=== PATIENT | male | born 1955 | race Caucasian/White ===

== ENCOUNTER 2023-12-29 07:16 | Emergency (ER) | payer MEDICARE, MEDICAID, SELFPAY ==
[2023-12-29 07:30] VITALS: BP 155/96; PULSE 84; RESP 19; TEMP 36.6; O2SAT 95; BMI 25.9
--- NOTE | 2023-12-29 08:28 | PD.EDSKIN ---
ED Skin Abcess FB-RME/HPI General Chief complaint: Skin/Abscess/Foreign Body Stated complaint: boil on back . mid-lower back Time Seen by Provider: 12/29/23 07:27 Arrival date/time: 12/29/23 07:16 RME / HPI RME / HPI narrative: 68-year-old male with a swollen painful lesion to the upper part of his gluteal fold. He has never had an issue, swelling, cyst in this area before. He denies trauma. Related Data Previous Rx's ?Medication ?Instructions ?Recorded cefuroxime axetil 500 mg tablet 500 mg PO BID #14 tabs 09/14/23 pantoprazole 40 mg tablet,delayed 40 mg PO QDAY #14 tabs 09/14/23 release (Protonix) sulfamethoxazole 800 1 tab PO BID 10 days #20 tabs 12/29/23 mg-trimethoprim 160 mg tablet (Bactrim DS) Allergies Allergy/AdvReac Type Severity Reaction Status Date / Time codeine Allergy Severe Vomiting Verified 07/25/22 02:08 diphenhydramine Allergy Severe Nausea Verified 07/25/22 02:08 ED Exam Narrative Physical exam: GENERAL APPEARANCE: AxOx4, generally well-appearing, no acute distress, unkept, smells of heavy HEART: Normal rate and regular rhythm, normal S1/S1, no m/r/g LUNGS: CTAB, moving air well. No crackles or wheezes are heard. NEUROLOGICAL: Grossly nonfocal. Alert and oriented, moving all 4 extremities. CN not formally tested but appear grossly intact. Observed to ambulate with normal gait. Skin: Warm and dry without any rash, a verrucous lesion with surrounding erythema, and punctate pockets of purulence over the apex of his gluteal fold. Course Quality Measures none Orders Category Date Time Status Obtain Written Consent For: .NOW Care 12/29/23 07:46 Active Clindamycin Vial [Cleocin vial] Med 12/29/23 07:46 Discontinued 600 mg IM X1 ONE Lidocaine 1% 20 ml [Xylocaine 1% 20 ML] Med 12/29/23 07:46 Discontinued 10 ml INFL X1 ONE Vital Signs Vital signs: Vital Signs Temperature 97.8 F 12/29/23 07:30 Pulse Rate 84 12/29/23 07:30 Respiratory Rate 19 12/29/23 07:30 Blood Pressure 155/96 H 12/29/23 07:30 Pulse Oximetry (%) 95 12/29/23 07:30 Oxygen Delivery Method Room Air 12/29/23 07:30 Skin / Abscess / Foreign Body MDM Narrative MDM Narrative:: Mr. Wilkins presents with a mass over the apex of his gluteal fold at the area of a pilonidal cyst. There is a possibility of this being malignant, however currently it is infected with pockets of purulence. An I&D was done which removed a 1 cc pocket of purulence and he will be placed on Bactrim for MRSA coverage. I have discussed the importance and the need to follow-up with a general surgeon for further management of the cyst and even possibly a biopsy. I have advised him that he can also take the paperwork discharge papers with him to his primary care doctor which should believe is the [facility] (he states it is the clinic just down the street next to the light ). Patient data External records reviewed:: [facility] previous records Clinical information provided by:: patient Social determinants that could affect healthcare access:: none Patient has the following chronic illnesses:: None How is presenting disease/condition affected by chronic disease/condition?: no chronic disease Evaluation data The following diagnostics were reviewed and interpreted by me:: other (specify) Lab and/or radiology exams considered but not ordered:: Not indicated Interpretation Summary: Not applicable Medications / Prescriptions Medications or Prescriptions considered but not ordered:: None Medication administrations:: Medication Administration History Discontinued Medications Clindamycin Phosphate (Clindamycin Phos Inj 150 Mg/Ml Vial 6 Ml) 600 mg IM X1 ONE Stop: 12/29/23 07:47 Lidocaine HCl (Lidocaine Hcl 1% 20 Ml Vial) 10 ml INFL X1 ONE Stop: 12/29/23 07:47 Above Consultations Consultation(s) initiated? (list below): No Diagnosis Skin/Abscess Differential Diagnosis: abscess of skin or subcutaneous tissue, urticaria, herpes zoster and cellulitis Most likely diagnosis given after review of the tests above:: See below Admission Indicated Admission indicated?: not indicated Admission Request Was there a request for admission?: No Disposition Plan Disposition Plan: Discharge Discharge Attestation Discharge Attestation: The patient and all family members were given an opportunity to ask questions and understood the discharge instructions. Discharge instructions specifically effects, indications for sooner follow up or return to the emergency department, and the expected course of current diagnosis. Patient condition: Stable Discharge Plan Plan Patient Disposition: HOME (Self Care) Prescriptions/Referrals Prescriptions/Med Rec: New sulfamethoxazole-trimethoprim [Bactrim DS] 800-160 mg tablet 1 tab PO BID 10 Days Qty: 20 0RF No Action cefuroxime axetil 500 mg tablet 500 mg PO BID Qty: 14 0RF pantoprazole [Protonix] 40 mg tablet,delayed release (DR/EC) 40 mg PO QDAY Qty: 14 0RF Referrals: No Primary/Family,Physician [Primary Care Provider] - In 1 week Problem List Clinical Impression: Infected pilonidal cyst Patient/Caregiver Discharge Instructions Education Materials: Pilonidal Cyst Additional Instructions: Please follow-up with your primary care doctor for referral to a general surgeon for further management and possible further testing such as a biopsy. You can return to the emergency department sooner symptoms worsen or if he notes any new, concerning issues. Print Language: Macedonian Stand Alone Forms: [employer] Award Info., Patient Portal Info Letter
[2023-12-29] MEDS: LIDOCAINE HCL 1% 20 ML VIAL 10 ML INFL (08:53)
[2023-12-29] MEDS: CLINDAMYCIN PHOS INJ 150 MG/ML VIAL 6 ML 600 MG IM (08:54)
== END 2023-12-29 09:05 | disposition home or self-care (01) ==
PROVIDERS: Emergency Provider Emergency Medicine
DX: L05.91 Pilonidal cyst without abscess (principal)
CPT/HCPCS: 10080; 96372; 99283; J0736; J3490

== ENCOUNTER 2024-01-10 20:19 | Inpatient (IN) | payer MEDICARE, MEDICAID, SELFPAY ==
[2024-01-10 20:20] VITALS: PULSE 80; RESP 18; O2SAT 98
[2024-01-10 20:36] VITALS: BP 152/88; PULSE 88; RESP 18; TEMP 36.6; O2SAT 98
[2024-01-10 20:37] VITALS: BMI 24.3
--- NOTE | 2024-01-10 20:38 | PD.EDRME ---
Rapid Medical Screening Exam RME Arrival date/time: 01/10/24 20:19 68 year old male with c/o of multi complaints. abd pain, n/v bodyaches I have greeted and performed a focused initial assessment of this patient. A comprehensive ED assessment and evaluation of the patient, analysis of all test results, and completion of the medical decision making process will be conducted by additional ED providers. Chief Complaint: Abdominal Pain Vital signs: Vital Signs Temperature 98 F 01/10/24 20:36 Pulse Rate 88 01/10/24 20:36 Respiratory Rate 18 01/10/24 20:36 Blood Pressure 152/88 H 01/10/24 20:36 Pulse Oximetry (%) 98 01/10/24 20:36 Oxygen Delivery Method Room Air 01/10/24 20:36
[2024-01-10] MEDS: ACETAMINOPHEN 500 MG TABLET 1000 MG PO (21:02)
[2024-01-10] MEDS: ONDANSETRON ODT 4 MG TABRAP PO (21:02)
[2024-01-10 21:05] LABS: Basophils % (Auto) 0 % (0-2.5); Eosinophils # (Auto) 0.1 Thou/mm3 (0.0-0.5); Eosinophils % (Auto) 1 % (0-10); Hematocrit 38.5 % (41.0-53.0); Immature Granulocytes % (Auto) 0 % (0-0); Immature Granulocytes Auto 0.03 Thou/mm3 (0.00-0.00); Lymphocytes # (Auto) 0.7 Thou/mm3 (1.0-4.8); Lymphocytes % (Auto) 5 % (10-50); Mean Corpuscular HGB Conc 33.8 g/dl (31.0-37.0); Mean Corpuscular Hemoglobin 29.8 pg (25.0-35.0); Mean Corpuscular Volume 88 fL (80-100); Monocytes # (Auto) 0.9 Thou/mm3 (0.0-0.8); Monocytes % (Auto) 7 % (0-12); Neutrophils # (Auto) 11.6 Thou/mm3 (1.8-7.7); Neutrophils % (Auto) 87 % (37-80); Nucleated Red Blood Cell % 0 /100 WBC (0); Platelet Count 306 Thou/mm3 (140-440); RDW Standard Deviation 45.2 fL (35.1-43.9); Red Blood Count 4.36 Miln/mm3 (4.50-5.90); White Blood Count 13.3 Thou/mm3 (3.8-10.6)
[2024-01-10 21:22] LABS: Alanine Aminotransferase 18 U/L (10-49); Albumin, Serum 4.6 gm/dL (3.4-4.8); Albumin/Globulin Ratio 1.9 (1.2-2.2); Alkaline Phosphatase 95 U/L (46-116); Anion Gap 6 (7-16); Aspartate Amino Transferase 28 U/L (0-34); BUN/Creatinine Ratio 26 Ratio (12-20); Bilirubin,Total 0.5 mg/dL (0.3-1.2); Blood Urea Nitrogen 21 mg/dL (9-23); Calcium 9.4 mg/dL (8.3-10.6); Calcium (Corrected) 9.4 mg/dL (8.5-10.1); Carbon Dioxide 24.2 mMol/L (20.0-31.0); Chloride 107 mMol/L (98-107); Creatinine (Component) 0.8 mg/dL (0.6-1.3); Estimated Creatinine Clearance 87.1 mL/min (>60); Globulin 2.4 gm/dL (2.3-3.5); Glucose 107 mg/dL (74-106); Lipase 32 U/L (12-53); Osmolality,Calculated 276 (275-295); Potassium 3.7 mMol/L (3.4-5.1); Sodium 137 mMol/L (136-145); eGFR > 60 See Note
[2024-01-10 22:58] LABS: Collection Type, Urine Voided
[2024-01-10 23:16] LABS: Bilirubin,Urine Negative (Negative); Blood,Urine Negative (Negative); Clarity,Urine Clear (Clear/Hazy); Color,Urine Lt-Yellow (Lt Yel-Yel); Glucose, Urine Negative (Negative); Ketones,Urine Negative (Negative); Leukocyte Esterase,Urine Negative (Negative); Nitrite,Urine Negative (Negative); PH,Urine 5.5 (5.0-7.0); Protein,Urine Negative (Neg - Trace); RBC,Urine 2 /hpf (0-3); Specific Gravity,Urine 1.031 (1.001-1.035); Squamous Epithelial Cell,Urine < 1 /hpf (0-5); Urobilinogen,Urine Negative mg/dL (0.0-1.0); WBC,Urine 1 /hpf (0-5)
--- NOTE | 2024-01-10 23:38 | XR_ITS ---
Examination: CT abdomen and pelvis without contrast. Coronal 3-D reconstructions. Sagittal 2-D reconstructions. Date and time of exam:24 1208 hrs. Indications: Abdominal pain nausea vomiting beginning today CTDI: vol (mGy): 5.85 DLP: (mGycm): 300 Technique: Axial images of the abdomen have been obtained, 3 mm slice thickness Intravenous contrast material has not been administered. Low dose protocols were performed. One or more of the following dose reduction techniques were used; automated exposure control, adjustment of the mA and/or KV according to patient size, use of iterative reconstruction technique. Findings: Smaller areas of opacity in both lower lung zones No focal liver or splenic lesion No gallstones No pancreatic mass No renal or ureteral calculi, no hydronephrosis Abnormal small bowel, fluid distended with wall thickening Normal appendix No diverticulitis Urinary bladder intact Transverse prostate dimension 4.9 cm Impression: Small areas of opacity in both lower lung zones, recommend PA lateral chest follow-up Abnormal small bowel, fluid distended with wall thickening, differential would include enteritis such as Crohn's disease, less likely early small bowel obstruction
[2024-01-11] VITALS (7 sets, daily range): BP systolic 113–153; BP diastolic 65–95; PULSE 49–73; RESP 15–18; TEMP 36.3–37.2; O2SAT 94–97; BMI 23.7
--- NOTE | 2024-01-11 01:52 | PRELIM_ITS ---
CT scan of the abdomen and pelvis without intravenous contrast (axial sections with sagittal and teresa nal reformats) January 11, 2024 at 0008 hoursClinical History: Abdominal pain, nausea, rule out smal l bowel obstruction vs colitis.Comparison: No prior study is available for comparison. Findings:There are small areas of consolidation at thelung bases. Bibasilar streaky atelectasis is present.The live r, gallbladder, pancreas, spleen, kidneys and adrenals are unremarkable on this noncontrast study.The stomach is distended with food residue. There is mild small bowel wall thickening. There are multipl e mildly dilated small bowel loops without evident transition point. There is mild mesenteric fat str anding.There are occasional colonic diverticula without evidence of diverticulitis. The appendix is w ithin normal limits. There is no mesenteric or retroperitoneal adenopathy.The urinary bladder is inco mpletely distended at the time of the examination and appears mildly thick walled. The prostate is en larged with its median lobe projecting within the bladder lumen.There is no free fluid or free air. T he abdominal aorta demonstrates atheromatous calcification without evidence of aneurysm.There is anor ectal and bilateral gluteal edema/ fat stranding.Degenerative changes are identified in the spine.Imp ression:1. Findings suspicious forpartial small bowel obstruction versus enteritis.Recommend clinical correlation.2. Anorectal and bilateral gluteal edema/ cellulitis. Recommend clinical correlation.3. Small areas of consolidation at thelung bases, infectious process cannot be excluded. Recommend clini ke correlation.Discussion Details: Results verbally communicated to Favian Grimaldo RN at 04:38 AM E T 01/11/2024. A call back number was provided to facilitate a direct physician to physician communica tion. Report Electronically Signed By: Vannesa Eisenberg 01/11/2024 1:52:04 AM [EST]
--- NOTE | 2024-01-11 02:07 | PD.EDABDPN ---
ED Abdominal Pain RME/HPI General Chief Complaint: Abdominal Pain Stated complaint: ABD PAIN Arrival date/time: 01/10/24 20:19 RME / HPI RME / HPI narrative: 01/10/24 20:19 68 year old male with c/o of multi complaints. abd pain, n/v bodyaches I have greeted and performed a focused initial assessment of this patient. A comprehensive ED assessment and evaluation of the patient, analysis of all test results, and completion of the medical decision making process will be conducted by additional ED providers. ----- Dr. Hoang?s Main ED Evaluation: 68yo male presents to the ED for complaints of abdominal and back pain x today. Patient reports associated nausea, vomiting, chills, sweating, a new productive cough, toe pain, and a headache. He states all of his symptoms started today and that everything hurts . He denies any other associated symptoms. Related Data Previous Rx's ?Medication ?Instructions ?Recorded pantoprazole 40 mg tablet,delayed 40 mg PO QDAY #14 tabs 09/14/23 release (Protonix) sulfamethoxazole 400 1 tab PO BID 6 days #12 tabs 01/12/24 mg-trimethoprim 80 mg tablet (Bactrim) Allergies Allergy/AdvReac Type Severity Reaction Status Date / Time codeine Allergy Severe Vomiting Verified 07/25/22 02:08 diphenhydramine Allergy Severe Nausea Verified 07/25/22 02:08 Review of Systems Review of Systems Systems Reviewed: All systems reviewed, normal except as documented Narrative Review of Systems: Gen: No fever, + chills, no weight loss, + sweating EYES: No discharge, no visual changes, no pain HEENT: No ear pain, no congestion, no sore throat PULM: No shortness of breath, + cough, no congestion CV: No chest pain, no dyspnea on exertion, no palpitations GI: + nausea, + vomiting, no diarrhea, + pain, no constipation : No frequency, no urgency, no dysuria Musc/skel: No joint pain, + back pain, + toe pain Skin: No rash Psyc: No hallucinations, no depression Heme/Lymph: No easy bleeding or bruising tendencies Neuro: No weakness, + headache Past Medical History Past Medical History CARDIAC: Negative Cardiac Disorders or Congestive Heart Failure RESPIRATORY: Negative Chronic Obstructive Pulmonary Disease (COPD) or Asthma GENITOURINARY: Negative Renal Disease ENDOCRINE: Positive Hyperthyroidism; Negative Diabetes Mellitus Type 1 or Diabetes Mellitus Type 2 HEMATOLOGIC: Negative Sickle Cell Disease Social History SMOKING STATUS: Current every day smoker ED Exam Narrative Physical exam: GENERAL APPEARANCE: alert and oriented x 4, well-developed, well-nourished, unkempt, poor hygiene, no acute distress HEENT: Normocephalic, atraumatic; pupils equal, round, reactive to light; EOMI; mucous membranes pink, moist; oropharynx clear NECK: Supple LUNGS: CTABL; no wheezes, no rales, no rhonchi HEART: Regular rate, regular rhythm; normal S1, S2; no murmurs ABDOMEN: non distended; normal BS; soft, no tenderness, no guarding, no rebound; no masses, no organomegaly, no hernia BACK: no CVA tenderness EXTREMITIES: atraumatic; no edema; bilateral foot erythema, whitish discoloration of left great toe, consistent with possible frostbite injury NEUROLOGIC: awake; alert and oriented x4; cranial nerves II-XII grossly intact; no focal sensory or motor deficits PSYCHIATRIC: appropriate mood and affect SKIN: warm, dry, normal color; no rashes Course Quality Measures none Orders Category Date Time Status Insert IV NOW Care 01/11/24 02:[address] abdomen pelvis wo con Stat Exams 01/10/24 23:38 Completed XR small bowel single contrast Stat Exams 01/11/24 04:14 Completed CBC Stat Lab 01/10/24 20:48 Completed CMP [Comprehensive Metabolic Panel] Stat Lab 01/10/24 20:48 Completed Lipase Stat Lab 01/10/24 20:48 Completed UA [Urinalysis] Stat Lab 01/10/24 22:28 Completed Acetaminophen Tab [Tylenol ES Tab] Med 01/10/24 20:39 Discontinued 1,000 mg PO X1 ONE Ondansetron Odt [Zofran Odt] Med 01/10/24 20:39 Discontinued 4 mg PO X1 ONE Sodium Chloride 0.9% 1000 ml [Ns] 1,000 ml Med 01/11/24 04:12 Discontinued IV 999 mls/hr Vital Signs Vital signs: Vital Signs Temperature 98 F 01/10/24 20:36 Pulse Rate 88 01/10/24 20:36 Respiratory Rate 18 01/10/24 20:36 Blood Pressure 152/88 H 01/10/24 20:36 Pulse Oximetry (%) 98 01/10/24 20:36 Oxygen Delivery Method Room Air 01/10/24 20:36 Pulse ox is 98% on room air, which is normal according to my interpretation. Abdominal Pain MDM MDM Narrative MDM Narrative:: Scribe Attestation: 01/11/24 - Katelynn Atkins am scribing for and in the presence of Dr. Hoang. Patient data External records reviewed:: [facility] previous records (Per chart review, patient was seen here on 12/29/23 for an infected pilonidal cyst.) Clinical information provided by:: patient Social determinants that could affect healthcare access:: substance use (hx of methamphetamine abuse) Patient has the following chronic illnesses:: hyperthyroidism How is presenting disease/condition affected by chronic disease/condition?: uneffected by Evaluation data The following diagnostics were reviewed and interpreted by me:: lab results and radiology exam(s) Lab and/or radiology exams considered but not ordered:: none Interpretation Summary: WBC count is elevated at 13.3, CMP is normal, Lipase is normal, UA is negative, according to my interpretation. ---- Telerad Preliminary Report Draft Patient: CARRIE CAMILO. Record#: [id number] Birthdate: 1955 Age/Sex: 68 / M Location: [facility] Attending Dr: Ordering Physician: Date of Service: Procedure(s): Accession Number(s): cc: ~ CT scan of the abdomen and pelvis without intravenous contrast (axial sections with sagittal and coronal reformats) January 11, 2024 at 0008 hours Clinical History: Abdominal pain, nausea, rule out small bowel obstruction vs colitis. Comparison: No prior study is available for comparison. Findings: There are small areas of consolidation at thelung bases. Bibasilar streaky atelectasis is present. The liver, gallbladder, pancreas, spleen, kidneys and adrenals are unremarkable on this noncontrast study. The stomach is distended with food residue. There is mild small bowel wall thickening. There are multiple mildly dilated small bowel loops without evident transition point. There is mild mesenteric fat stranding.There are occasional colonic diverticula without evidence of diverticulitis. The appendix is within normal limits. There is no mesenteric or retroperitoneal adenopathy. The urinary bladder is incompletely distended at the time of the examination and appears mildly thick walled. The prostate is enlarged with its median lobe projecting within the bladder lumen.There is no free fluid or free air. The abdominal aorta demonstrates atheromatous calcification without evidence of aneurysm.There is anorectal and bilateral gluteal edema/ fat stranding. Degenerative changes are identified in the spine. Impression: 1. Findings suspicious forpartial small bowel obstruction versus enteritis.Recommend clinical correlation. 2. Anorectal and bilateral gluteal edema/ cellulitis. Recommend clinical correlation. 3. Small areas of consolidation at thelung bases, infectious process cannot be excluded. Recommend clinical correlation. Discussion Details: Results verbally communicated to Favian Grimaldo RN at 04:38 AM ET 01/11/2024. A call back number was provided to facilitate a direct physician to physician communication. Report Electronically Signed By: Vannesa Eisenberg 01/11/2024 1:52:04 AM [EST] Medications / Prescriptions Medications or Prescriptions considered but not ordered:: none Medication administrations:: Medication Administration History Discontinued Medications Acetaminophen (Acetaminophen 500 Mg Tablet) 1,000 mg PO X1 ONE Stop: 01/10/24 20:40 Last Admin: 01/10/24 21:02 Dose: 1,000 mg Documented By: MARY Acetaminophen (Acetaminophen 325 Mg Tablet) 650 mg PO Q6H PRN PRN Reason: Fever >101.5 Stop: 02/10/24 04:37 Acetaminophen (Acetaminophen 325 Mg Tablet) 650 mg PO Q6H PRN PRN Reason: PAIN SCALE 1-3 (mild Stop: 02/10/24 04:37 Last Admin: 01/12/24 21:56 Dose: 650 mg Documented By: Comments: per patient request Admin: 01/12/24 10:04 Dose: 650 mg Documented By: MEERA Hydrocodone Bitart/Acetaminophen (Hydrocodone/Apap 5/325 Tablet) 1 tab PO X1 ONE Stop: 01/12/24 23:26 Last Admin: 01/12/24 23:58 Dose: 1 tab Documented By: Doxycycline Hyclate (Doxycycline 100 Mg Tablet) 100 mg PO BID JERRY Stop: 01/18/24 10:44 Last Admin: 01/13/24 08:35 Dose: 100 mg Documented By: Admin: 01/12/24 21:56 Dose: 100 mg Documented By: Admin: 01/12/24 10:04 Dose: 100 mg Documented By: Admin: 01/11/24 21:57 Dose: 100 mg Documented By: Admin: 01/11/24 13:19 Dose: 100 mg Documented By: MEERA Famotidine (Famotidine Inj 10 Mg/Ml Vial 2 Ml) 20 mg IVP Q12HR JERRY Stop: 02/10/24 08:59 Last Admin: 01/13/24 08:35 Dose: 20 mg Documented By: Admin: 01/12/24 21:57 Dose: 20 mg Documented By: Admin: 01/12/24 10:03 Dose: 20 mg Documented By: Admin: 01/11/24 21:57 Dose: 20 mg Documented By: Admin: 01/11/24 10:32 Dose: 20 mg Documented By: MEERA Heparin Sodium (Porcine) (Heparin Sod Inj 5000 Unit/Ml Vial) 5,000 unit SC Q8HR JERRY Stop: 01/25/24 05:59 Last Admin: 01/13/24 05:13 Dose: 5,000 unit Documented By: Co-signed By: GENARO Admin: 01/12/24 22:00 Dose: 5,000 unit Documented By: Co-signed By: JASON Admin: 01/12/24 14:17 Dose: 5,000 unit Documented By: MEERA Co-signed By: ASHLEE Admin: 01/12/24 06:33 Dose: 5,000 unit Documented By: Co-signed By: GENARO Admin: 01/11/24 21:57 Dose: 5,000 unit Documented By: JANET Co-signed By: OSCAR Admin: 01/11/24 13:19 Dose: 5,000 unit Documented By: MEERA Co-signed By: TAHMINA Admin: 01/11/24 06:13 Dose: 5,000 unit Documented By: HORACIO Co-signed By: MARY Sodium Chloride (Ns) 1,000 mls @ 999 mls/hr IV .Q1H1M ONE Stop: 01/11/24 05:12 Last Infusion: 01/11/24 06:13 Dose: Infused Documented By: Admin: 01/11/24 04:47 Dose: 999 mls/hr Documented By: ALEJANDRO Ceftriaxone Sodium/Dextrose (Rocephin/D5w 1gm Iv Premix) 50 mls @ 100 mls/hr IV QDAY JERRY Stop: 01/18/24 10:36 Last Infusion: 01/13/24 09:05 Dose: Infused Documented By: Admin: 01/13/24 08:35 Dose: 100 mls/hr Documented By: Infusion: 01/12/24 10:33 Dose: Infused Documented By: Admin: 01/12/24 10:03 Dose: 100 mls/hr Documented By: Infusion: 01/11/24 13:49 Dose: Infused Documented By: Admin: 01/11/24 13:19 Dose: 100 mls/hr Documented By: MEERA Ondansetron HCl (Ondansetron Odt 4 Mg Tabrap) 4 mg PO X1 ONE; Protocol Stop: 01/10/24 20:40 Last Admin: 01/10/24 21:02 Dose: 4 mg Documented By: CVL Ondansetron HCl (Ondansetron Inj 2 Mg/Ml Inj 2 Ml) 4 mg IV Q6H PRN; Protocol PRN Reason: NAUSEA OR VOMITING Stop: 02/10/24 04:37 Potassium Phos/Sodium Phos (Naph,[facility] Mbdb 1 Packet (1.5 Gm)) 2 packet PO X1 ONE Stop: 01/12/24 08:05 Last Admin: 01/12/24 10:04 Dose: 2 packet Documented By: MEERA see above Consultations Consultation(s) initiated? (list below): Yes Consultation #1 (Physician, Specialty, Details): Discussed case with [Dr. Barron, attending Dr. Foss] from Hospitalist service regarding admission. Discussed patients ED course, exam findings, labs, and radiology results. The Hospitalist will come evaluate him for admission. Time: 04:13 Diagnosis Differential diagnosis abdominal pain: small bowel obstruction and other (enteritis, colitis) Most likely diagnosis given after review of the tests above:: see below Admission Indicated Admission indicated?: indicated Admission Request Was there a request for admission?: Yes Admission Attestation Admission request attestation: Discussed case with [] from Hospitalist service regarding admission. Discussed patients ED course, exam findings, labs, and radiology results. The Hospitalist [agrees,declines] to accept the patient for admission. Disposition Plan Disposition Plan: Admit Discharge Plan Plan Patient Disposition: Admit Acute Care w/in Hospital Patient condition on transfer: Stable Problem List Clinical Impression: Partial small bowel obstruction
--- NOTE | 2024-01-11 04:14 | XR_ITS ---
Examination: Small bowel series with KUBs Technique: AP portable supine abdomen 3 views in medial, 30 minutes, 1 hour, patient received 120 cc Gastrografin orally Exam date and time: January 11, 2024 0549 hrs. Indications: Abdominal pain and distention today, CT abdomen pelvis January 11, 2024 0008 hrs. Small bowel obstruction versus enteritis Findings: Contrast in distended small bowel loops on the 1 hour film Impression: Dilated small bowel loops, recommend follow-up KUBs 8:00 AM, 10:00 AM, 12 noon
--- NOTE | 2024-01-11 04:44 | PD.RESHP ---
Documentation for date of: 01/11/24 [facility] History of Present Illness History of present illness: This is a 67-year-old male with PMHx of substance abuse who presented to the ED with 3+ days of worsening abdominal pain, associated with nausea, and not recurrent episode of vomiting stomach content containing small amount of blood. Abdominal pain diffuse, poorly localized, rated 6 out of 10, not associated with eating, no alleviating or worsening factors. Last bowel movement 4 days ago and was soft and normal in color. He was passing flatus prior to admission yesterday, but not currently. He is an active METH user, last used METH the day of admission. Admits to subjective fever. Denies headaches, confusion, chest pain, shortness of breath, cough, blood in stool, dysuria, urinary frequency or urgency, or hematuria. ED COURSE: Afebrile, BP 152/88, HR 88, RR 18, satting 98% on room air Labs showed leukocytosis 13.3, Hgb of 13, normal chemistry panel, normal UA Preliminary CT abdomen showed partial SBO versus enteritis, anorectal/bilateral gluteal edema and cellulitis, small lung bibasilar consolidations. Patient started on small bowel series with GASTROGRAFIN, admitted to [facility] for further evaluation. PMHx: None PSHx: None Meds: None Allergies: CODEINE (vomiting), DIPHENHYDRAMINE (nausea) SH: Homeless, occasional alcohol use, occasional tobacco smoker, active METH user Exam Vital Signs Temp Pulse Resp BP Pulse Ox O2 Del Method 98.9 F 70 17 134/75 H 94 L Room Air 01/11/24 04:43 01/11/24 04:43 01/11/24 04:43 01/11/24 04:43 01/11/24 04:43 01/11/24 04:43 Narrative Exam GENERAL: Disheveled, mild distress/abdominal pain, otherwise normal adult male HEENT: NCAT.?GRACIELA. Oral mucosa is moist. Patent Nares NECK: Supple, nontender, no thyromegaly, no meningismus, no JVD, no step offs CHEST: Symmetrical, atraumatic, and with equal expansion, Nontender on palpation no deformity and no crepitus. CARDIOVASCULAR: RRR, no m/g/r LUNGS: CTAB, no w/r/r. Symmetrical chest rise. No intercostal subcostal retraction. ABDOMEN: Diffusely tender, rigid, distended, no guarding or rebound or mass noted, BS present in all quadrants. EXTREMITIES: Nontender.? No edema/cyanosis.?Moves all 4 extremities well, with full ROM and good CSM. SKIN: Warm and dry, no jaundice. Small stage I ulcer of left gluteal fold, erythema and swelling of bilateral gluteal fold, nontender. MSK: No lumbar or midline, no CVA, no paraspinal muscle spasm or tenderness. NEURO: NIEVES x4, CN II-XII grossly intact.?No focal neurologic deficits. PSYCHIATRIC: Normal mood and affect, cooperative, no SI or HI or hallucinations. Results: Labs 01/11/24 05:07 01/11/24 05:07 Labs: Short CBC 01/10/24 Range/Units 20:48 WBC 13.3 H (3.8-10.6) Thou/mm3 Hgb 13.0 L (13.5-16.0) g/dL Hct 38.5 L (41.0-53.0) % Plt Count 306 (140-440) Thou/mm3 BMP 01/10/24 20:48 Sodium 137 Potassium 3.7 Chloride 107 Carbon Dioxide 24.2 BUN 21 Creatinine 0.8 Glucose 107 H Calcium 9.4 Liver Function 01/10/24 Range/Units 20:48 Total Bilirubin 0.5 (0.3-1.2) mg/dL AST 28 (0-34) U/L ALT 18 (10-49) U/L Alkaline Phosphatase 95 (46-116) U/L Albumin 4.6 (3.4-4.8) gm/dL Urine 01/10/24 Range/Units 22:28 Urine Color Lt-Yellow (Lt Yel-Yel) Urine Clarity Clear (Clear/Hazy) Urine pH 5.5 (5.0-7.0) Ur Specific [place] 1.031 (1.001-1.035) Urine Protein Negative (Neg - Trace) Urine Glucose (UA) Negative (Negative) Quality Measures Quality Measures none Advance care planning discussed with:: patient Medications Home Medications and Allergies Allergies Allergy/AdvReac Type Severity Reaction Status Date / Time codeine Allergy Severe Vomiting Verified 07/25/22 02:08 diphenhydramine Allergy Severe Nausea Verified 07/25/22 02:08 Visit Medications Sodium Chloride (Ns) 1,000 mls @ 999 mls/hr IV .Q1H1M ONE Stop: 01/11/24 05:12 Discontinued Medications Acetaminophen (Acetaminophen 500 Mg Tablet) 1,000 mg PO X1 ONE Stop: 01/10/24 20:40 Last Admin: 01/10/24 21:02 Dose: 1,000 mg Ondansetron HCl (Ondansetron Odt 4 Mg Tabrap) 4 mg PO X1 ONE; Protocol Stop: 01/10/24 20:40 Last Admin: 01/10/24 21:02 Dose: 4 mg Assessment & Plan Plan In summary: 68-year-old male with polysubstance abuse disorder, admitted for possible SBO, started on small bowel series with GASTROGRAFIN. # Partial SBO Presented with abdominal pain and distention, unable to pass stools for 4 days, associated with nausea single episode of vomiting Exam significant for generally tender and distended abdomen Prelim CT showed partial SBO ? NPO ? Small bowel series ? ACETAMINOPHEN for pain ? Consider NG tube if symptoms worsen or do not resolve. ? Consider general surgery consult # Hypertension Likely 2/2 pain, no history of hypertension, not currently taking meds Admission BP 155/96, currently normotensive ? Daily vitals ? Consider AMLODIPINE as indicated # Leukocytosis Likely reactive 2/2 SBO and/or ?cellulitis as below ? Daily CBS ? Anticipate improvement with SBO resolution # Cellulitis of gluteal fold # Stage I ulcer of left gluteal fold Exam showed mild erythema and swelling of bilateral gluteal folds, stage 1 ulcer of left gluteal fold, no tenderness CT suggested celluluitis of anorectal/bilateral gluteal edema and cellulitis Possibly contributing to leukocytosis ? Wound care ? Consider CEPHALEXIN # Polysubstance abuse disorder History of alcohol, tobacco, and active meth use ? Consulted on cessasion and social support # Incidental Bibasliar PNA As seen on prelim CT, patient otherwise asymptomatic, denies cough or sob, normal lung exam ? Continue monitoring Health maintenance Diet: NPO GI prophylaxis: FAMOTIDINE DVT prophylaxis: HEPARIN Antibiotics: None CODE STATUS: Full Code Disposition: Awaiting SBO resolution Patient case was discussed with attending, Dr. Roderick ROSA and senior resident Dr. Barron. Audra Laws DO PGYI Attending Provider Attestation/Addendum 68-year-old male patient with substance abuse, homelessness was seen in the ER complaining of multiple symptoms including abdominal pain body aches, cough, nausea vomiting. Workup showed elevated WBC count of 13,000. Patient was presented to the hospitalist service for admission for partial small bowel obstruction. No past surgical history elicited. CT scan showed possible partial small bowel obstruction, and a rectal, gluteal fold edema, focal consolidation at the lung bases. Small bowel series was ordered. The patient is a poor historian. When I saw him he denies chest pain no abdominal pain. He is comfortably sleeping.
[2024-01-11] MEDS: SODIUM CHLORIDE 0.9% 1000 ML 1,000 ML 999 ML IV (04:47)
[2024-01-11 05:32] LABS: Basophils % (Auto) 0 % (0-2.5); Eosinophils # (Auto) 0.1 Thou/mm3 (0.0-0.5); Eosinophils % (Auto) 1 % (0-10); Hematocrit 37.6 % (41.0-53.0); Hemoglobin 12.6 g/dL (13.5-16.0); Immature Granulocytes % (Auto) 0 % (0-0); Immature Granulocytes Auto 0.02 Thou/mm3 (0.00-0.00); Lymphocytes # (Auto) 0.4 Thou/mm3 (1.0-4.8); Lymphocytes % (Auto) 5 % (10-50); Mean Corpuscular HGB Conc 33.5 g/dl (31.0-37.0); Mean Corpuscular Hemoglobin 29.8 pg (25.0-35.0); Mean Corpuscular Volume 89 fL (80-100); Monocytes # (Auto) 0.7 Thou/mm3 (0.0-0.8); Monocytes % (Auto) 8 % (0-12); Neutrophils # (Auto) 7.9 Thou/mm3 (1.8-7.7); Neutrophils % (Auto) 86 % (37-80); Nucleated Red Blood Cell % 0 /100 WBC (0); Platelet Count 279 Thou/mm3 (140-440); RDW Standard Deviation 45.9 fL (35.1-43.9); Red Blood Count 4.23 Miln/mm3 (4.50-5.90); White Blood Count 9.3 Thou/mm3 (3.8-10.6)
[2024-01-11 05:56] LABS: Alanine Aminotransferase 15 U/L (10-49); Albumin, Serum 4.1 gm/dL (3.4-4.8); Albumin/Globulin Ratio 1.9 (1.2-2.2); Alkaline Phosphatase 88 U/L (46-116); Anion Gap 6 (7-16); Aspartate Amino Transferase 22 U/L (0-34); BUN/Creatinine Ratio 21 Ratio (12-20); Bilirubin,Total 0.7 mg/dL (0.3-1.2); Blood Urea Nitrogen 17 mg/dL (9-23); Calcium 8.4 mg/dL (8.3-10.6); Calcium (Corrected) 8.4 mg/dL (8.5-10.1); Carbon Dioxide 25.1 mMol/L (20.0-31.0); Chloride 106 mMol/L (98-107); Creatinine (Component) 0.8 mg/dL (0.6-1.3); Estimated Creatinine Clearance 87.1 mL/min (>60); Globulin 2.2 gm/dL (2.3-3.5); Glucose 94 mg/dL (74-106); Magnesium 1.8 mg/dL (1.6-2.6); Osmolality,Calculated 275 (275-295); Potassium 3.6 mMol/L (3.4-5.1); Sodium 137 mMol/L (136-145); Total Protein 6.3 gm/dL (5.7-8.2); eGFR > 60 See Note
[2024-01-11] MEDS: HEPARIN SOD INJ 5000 UNIT/ML VIAL SC ×3 (06:13→21:57)
--- NOTE | 2024-01-11 07:15 | PC.NURSE ---
Report received at this tme; per report, pt has been having ABD pain x3 days, with N/V. Pt diagnosed with small bowel obstruction. His urine showed hematuria. Pt states his last BM was 4 days ago and reports he's constipated. Pt is a MedSurg admit. PMH of substance abuse with meth. Pt reports last use was 01/10/2024. Pt denies any PMH when asked at this time.
--- NOTE | 2024-01-11 08:00 | XR_ITS ---
Examination: Abdomen AP single view Technique: AP portable supine abdomen, single view Exam date and time: January 11, 2024 0749 hrs. Indications: Abdominal pain this week, 2 hour delayed film post small bowel series today Findings: Contrast in mildly distended small bowel loops Impression: Unlikely small bowel obstruction, additional delayed films will be obtained
--- NOTE | 2024-01-11 10:00 | XR_ITS ---
Examination: Abdomen AP single view Technique: AP portable supine abdomen, single view Exam date and time: January 11, 2024 1014 hrs. Indications: Abdominal pain and distention this week, forearm delayed film post small bowel series today. Findings: Contrast in mildly distended small bowel loops with contrast now present throughout the colon including rectal region Impression: Negative for small bowel obstruction
[2024-01-11] MEDS: FAMOTIDINE INJ 10 MG/ML VIAL 2 ML 20 MG IVP ×2 (10:32→21:57)
--- NOTE | 2024-01-11 11:45 | PC.NURSE ---
stage 3 pressure injury noted to left gluteal cleft, area cleaned and allevyn in place
--- NOTE | 2024-01-11 11:47 | PC.NURSE ---
pt states prior to hospital visit he was living with a friend which he worked for, but was unexpectedly kicked out, pt states he has no transportation and is currently homeless, referral to certified social workers in health care made
--- NOTE | 2024-01-11 12:30 | PC.NURSE ---
Made Dr. Barboza aware pt doesnt have blood culture orders, states no orders at this time
--- NOTE | 2024-01-11 12:32 | PD.RESPRO ---
Documentation for date of: 01/11/24 Subjective Subjective Interval history: Patient seen at bedside this morning. No overnight events. Patient stated that he has been passing flatulence, but does not remember when his last bowel movement was. He was also complaining of some mild headaches and stated that he had last used meth on the day of his admission. Small bowel series was negative for small bowel obstruction. Order urine tox screen. No other complaints at this time. Exam Vital Signs Temp Pulse Resp BP Pulse Ox O2 Del Method 97.4 F 49 L 17 132/76 H 97 Room Air 01/11/24 12:00 01/11/24 12:00 01/11/24 12:00 01/11/24 12:00 01/11/24 12:00 01/11/24 12:00 Narrative Exam General: A/O x2 (not to time), disheveled, drowsy Eyes: PERRL, EOMI. Anicteric, vision grossly intact. Ears: No ear pain, no ear discharge, Hearing grossly intact. Nose: No nasal discharge. Mouth/Throat: dry mucous membranes, no redness, no lesions. Neck: Neck supple, non-tender, no cervical lymphadenopathy. Lungs: Clear RALPH to auscultation and percussion, No accessory muscle use. Cardio: Normal S1/S2, regular rhythm, no murmurs, no JVD Abdomen: Soft, non-tender, no palpable masses, peristalsis present, no guarding or rebound. Extremities: Symmetrical, no significant deformities, no peripheral edema , non-tender, peripheral pulses presents. Skin: No rashes, no lesions, warm to touch. Neuro: No focal neurological deficits. motor and sensory intact. Objective Labs 01/11/24 05:07 01/11/24 05:07 Labs: Laboratory Results - last 24 hr 01/10/24 01/10/24 01/11/24 20:48 22:28 05:07 WBC 13.3 H 9.3 RBC 4.36 L 4.23 L Hgb 13.0 L 12.6 L Hct 38.5 L 37.6 L MCV 88 89 MCH 29.8 29.8 MCHC 33.8 33.5 RDW Std Deviation 45.2 H 45.9 H Plt Count 306 279 Neut % (Auto) 87 H 86 H Lymph % (Auto) 5 L 5 L Powell % (Auto) 7 8 Eos % (Auto) 1 1 Baso % (Auto) 0 0 Neut # (Auto) 11.6 H 7.9 H Lymph # (Auto) 0.7 L 0.4 L Powell # (Auto) 0.9 H 0.7 Eos # (Auto) 0.1 0.1 Baso # (Auto) 0.0 0.0 Immature Gran # (Auto) 0.03 H 0.02 H Absolute Nucleated RBC 0.00 0.00 Immature Gran % 0 0 Nucleated RBC % 0 0 Sodium 137 137 Potassium 3.7 3.6 Chloride 107 106 Carbon Dioxide 24.2 25.1 Anion Gap 6 L 6 L BUN 21 17 Creatinine 0.8 0.8 Estim Creat Clear Calc 87.1 87.1 eGFR > 60 > 60 BUN/Creatinine Ratio 26 H 21 H Glucose 107 H 94 Calculated Osmolality 276 275 Calcium 9.4 8.4 Corrected Calcium 9.4 8.4 L Magnesium 1.8 Total Bilirubin 0.5 0.7 AST 28 22 ALT 18 15 Alkaline Phosphatase 95 88 Total Protein 7.0 6.3 Albumin 4.6 4.1 D Globulin 2.4 2.2 L Albumin/Globulin Ratio 1.9 1.9 Lipase 32 Ur Collection Type Voided Urine Color Lt-Yellow Urine Clarity Clear Urine pH 5.5 Ur Specific [place] 1.031 Urine Protein Negative Urine Glucose (UA) Negative Urine Ketones Negative Urine Blood Negative Urine Nitrite Negative Urine Bilirubin Negative Urine Urobilinogen (Auto) Negative Ur Leukocyte Esterase Negative Urine RBC 2 Urine WBC 1 Ur Squamous Epith Cells < 1 Urine Bacteria None Quality Measures Quality Measures none Advance care planning discussed with:: patient Assessment & Plan Assessment Current Active Medications: Generic Name Dose Route Start Last Admin Trade Name Sam PRN Reason Stop Dose Admin Acetaminophen 650 mg 01/11/24 04:38 Acetaminophen 325 Mg Tablet PO 02/10/24 04:37 Q6H PRN Fever >101.5 Acetaminophen 650 mg 01/11/24 04:38 Acetaminophen 325 Mg Tablet PO 02/10/24 04:37 Q6H PRN PAIN SCALE 1-3 (mild Doxycycline Hyclate 100 mg 01/11/24 10:45 Doxycycline 100 Mg Tablet PO 01/18/24 10:44 BID JERRY Famotidine 20 mg 01/11/24 09:00 01/11/24 10:32 Famotidine Inj 10 Mg/Ml Vial 2 Ml IVP 02/10/24 08:59 20 mg Q12HR JERRY Administration Heparin Sodium (Porcine) 5,000 unit 01/11/24 06:00 01/11/24 06:13 Heparin Sod Inj 5000 Unit/Ml Vial SC 01/25/24 05:59 5,000 unit Q8HR JERRY Administration Ceftriaxone Sodium/Dextrose 50 mls @ 100 mls/hr 01/11/24 10:37 Rocephin/D5w 1gm Iv Premix IV 01/18/24 10:36 QDAY JERRY Ondansetron HCl 4 mg 01/11/24 04:38 Ondansetron Inj 2 Mg/Ml Inj 2 Ml IV 02/10/24 04:37 Q6H PRN NAUSEA OR VOMITING Protocol Plan 68-year-old male with past medical history of substance abuse disorder was admitted to the hospital on 01/11/2024 due to concerns for small bowel obstruction. #Abdominal pain #Small bowel obstruction versus enteritis #Leukocytosis ?Patient came in with complaints of abdominal pain for the past 3 days prior to admission as well as inability to pass a bowel movement in the past 4 days. ?DDx small bowel obstruction versus enteritis given leukocytosis versus IBD ?Abdomen/pelvis CT showed abnormal small bowel fluid distention with wall thickening ?WBC on admission 13.3 and 9.3 today ?Small bowel series was negative for small bowel obstruction and he had a BM today. Plan: ?Will start diet ?Started IV Rocephin and p.o. doxycycline [01/11/2024?] ?Will continue to monitor #Pilonidal cyst ?Patient has a ruptured cyst around the intergluteal cleft ?Was not draining any pus ?Given mild leukocytosis on admission, we started IV antibiotics. ?No spikes in fevers Plan: ?Started IV Rocephin and p.o. doxycycline [01/11/2024?] ?Referral to wound care ?Will continue to monitor #Normocytic normochromic anemia ? Patient's hemoglobin at baseline is around 13 ?Hemoglobin today was 12.6 with no active signs of bleeding Plan: ?Will transfuse hemoglobin less than 7 ? Will continue to monitor #Hypertension ?Patient blood pressure had been elevated on admission which was likely due to pain ?Since then patient's blood pressure has been better controlled Plan: ?Consider antihypertensive medication such as amlodipine or hydralazine if patient's blood pressure becomes elevated again. ?Will continue to monitor #Hx of substance abuse ?U tox was ordered Disposition: Patient seen in med surg for possible SBO, ruled out. IV Abx for pilonidal cyst. Diet: Regular GI prophylaxis: not indicated DVT prophylaxis: Heparin Sc Code:Full Case disclosed with Attending Dr. Sherly Salas PGY1 Attending Provider Attestation/Addendum I have examined the patient, reviewed labs and imaging findings, discussed the case with the resident(s), and reviewed entered orders. I agree with the plan of care as outlined in this note, with these additional summaries/recommendations: Patient seen at bedside. Patient was admitted overnight for small bowel obstruction. Patient is currently undergoing small bowel series with most recent showing no SBO. Furthermore patient endorses that he feels like he is about to have a bowel movement. Resume diet and we will monitor how patient tolerates. Mild hypocalcemia present and we will monitor for now. Repeat chemistry and hematology panel in AM. If patient continues to improve then anticipate discharge in the next [address] Dubois
[2024-01-11] MEDS: cefTRIAXone/D5w 1gm IV premix 50 ML IV (13:19)
[2024-01-11] MEDS: DOXYCYCLINE 100 MG TABLET PO ×2 (13:19→21:57)
--- NOTE | 2024-01-11 14:24 | PC.SS ---
Rounding: New admit, one more day of monitoring, on iv abx
[2024-01-11 17:09] LABS: Amphetamine/Methamp Scrn,U Positive (Negative); Barbiturate Screen,Urine Negative (Negative); Benzodiazepines Screen,Urine Negative (Negative); Benzoylecgonine Screen, Ur Negative (Negative); Fentanyl Screen,Urine Negative (Negative); Opiate Screen,Urine Negative (Negative); THC Screen,Urine Negative (Negative)
[2024-01-12] VITALS: BP 146/85; PULSE 65; RESP 18; TEMP 37.2; O2SAT 97
[2024-01-12 04:00] VITALS: BP 135/81; PULSE 69; RESP 18; TEMP 36.5; O2SAT 94
[2024-01-12] MEDS: HEPARIN SOD INJ 5000 UNIT/ML VIAL SC ×3 (06:33→22:00)
[2024-01-12 06:55] LABS: Basophils % (Auto) 0 % (0-2.5); Eosinophils # (Auto) 0.2 Thou/mm3 (0.0-0.5); Eosinophils % (Auto) 3 % (0-10); Hematocrit 37.5 % (41.0-53.0); Hemoglobin 12.5 g/dL (13.5-16.0); Immature Granulocytes % (Auto) 0 % (0-0); Immature Granulocytes Auto 0.02 Thou/mm3 (0.00-0.00); Lymphocytes # (Auto) 1.4 Thou/mm3 (1.0-4.8); Lymphocytes % (Auto) 28 % (10-50); Mean Corpuscular HGB Conc 33.3 g/dl (31.0-37.0); Mean Corpuscular Hemoglobin 30.2 pg (25.0-35.0); Mean Corpuscular Volume 91 fL (80-100); Monocytes # (Auto) 0.6 Thou/mm3 (0.0-0.8); Monocytes % (Auto) 12 % (0-12); Neutrophils # (Auto) 2.8 Thou/mm3 (1.8-7.7); Neutrophils % (Auto) 56 % (37-80); Nucleated Red Blood Cell % 0 /100 WBC (0); Platelet Count 233 Thou/mm3 (140-440); RDW Standard Deviation 48.5 fL (35.1-43.9); Red Blood Count 4.14 Miln/mm3 (4.50-5.90); White Blood Count 5.1 Thou/mm3 (3.8-10.6)
[2024-01-12 07:09] LABS: Alanine Aminotransferase 12 U/L (10-49); Albumin, Serum 3.9 gm/dL (3.4-4.8); Albumin/Globulin Ratio 1.8 (1.2-2.2); Alkaline Phosphatase 83 U/L (46-116); Anion Gap 7 (7-16); Aspartate Amino Transferase 19 U/L (0-34); BUN/Creatinine Ratio 13 Ratio (12-20); Bilirubin,Total 0.3 mg/dL (0.3-1.2); Blood Urea Nitrogen 10 mg/dL (9-23); Calcium 8.6 mg/dL (8.3-10.6); Calcium (Corrected) 8.7 mg/dL (8.5-10.1); Carbon Dioxide 24.7 mMol/L (20.0-31.0); Chloride 107 mMol/L (98-107); Creatinine (Component) 0.8 mg/dL (0.6-1.3); Globulin 2.2 gm/dL (2.3-3.5); Glucose 109 mg/dL (74-106); Magnesium 1.9 mg/dL (1.6-2.6); Osmolality,Calculated 277 (275-295); Potassium 3.7 mMol/L (3.4-5.1); Sodium 139 mMol/L (136-145); Total Protein 6.1 gm/dL (5.7-8.2); eGFR > 60 See Note
[2024-01-12 08:00] VITALS: BP 144/96; PULSE 61; RESP 17; TEMP 36.6; O2SAT 95
[2024-01-12] MEDS: FAMOTIDINE INJ 10 MG/ML VIAL 2 ML 20 MG IVP ×2 (10:03→21:57)
[2024-01-12] MEDS: cefTRIAXone/D5w 1gm IV premix 50 ML IV (10:03)
[2024-01-12] MEDS: ACETAMINOPHEN 325 MG TABLET 650 MG PO ×2 (10:04→21:56)
[2024-01-12] MEDS: NAPH,KPH MBDB 1 PACKET (1.5 GM) 2 PACKET PO (10:04)
[2024-01-12] MEDS: DOXYCYCLINE 100 MG TABLET PO ×2 (10:04→21:56)
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
--- NOTE | 2024-01-12 10:13 | PC.SS ---
SS contacted the [facility] at [phone] spoke Hui. Per Hui they are an 18month program they currently have 2 male beds available, pt can DC to their address [address] , [place] [address] and they will have him meet with Pastor Guerrero for intake, if pt decides their program is not what he wants to do they will take him to [facility] or somewhere else. SS went to update pt when he stated he can not walk. SS spoke to MARCY Gonzalez and requested if they can attempt to get pt up to the restroom to see how he does, if pt is unsteady we can order a PT eval but they are not here today so it would have to wait till tomorrow. MARCY Gonzalez stated they will try and get back to SS.
--- NOTE | 2024-01-12 11:09 | ESPR_ITS ---
<Statement entered by Dev Galloway MD - 01/12/24 15:24> Patient was seen and examined at the bedside with internal medicine team. Patient did report having bowel movements. SBO is resolved. Patient failed walking with the nurse and felt dizzy. We ordered PT evaluation and is agreeable to go to [facility] in case PT recommends. Will likely discharge tomorrow to [facility] based on PT evaluation. All labs and orders were reviewed. I saw and examined the patient, and I agree with current management stated by Dr Santosh MD,PGY1. Plan of care was discussed with the attending physician and resident physician. Disclaimer: Despite multiple revisions, due to the dictation software being used, the document bellow may not be free of grammatical errors including phonetic/typographic errors. However, this does not deter from our commitment to providing health care in the patient's best interest in mind. Dr. John MD, PGY 2 Documentation for date of: 01/12/24 Subjective Subjective Interval history: Patient was seen and examined at bedside this AM. No acute exents overnight. Patient tolerating diet, adequate urine output and mentation is at baseline. Patient had a bowel movement this morning and complains of lower back pain at site of pilonidal abscess. Patient medically cleared for discharge but failed his walk test with the nurses today. PT eval ordered and pending discharge to [facility] once complete. Phosphorus 2 and repleted with 1 packet of Neutra-Phos Exam Vital Signs Temp Pulse Resp BP Pulse Ox O2 Del Method 97.8 F 61 17 144/96 H 95 Room Air 01/12/24 08:00 01/12/24 08:00 01/12/24 08:00 01/12/24 08:00 01/12/24 08:00 01/12/24 08:00 Narrative Exam General: A/O x3 , disheveled, drowsy Eyes: PERRL, EOMI. Anicteric, vision grossly intact. Ears: No ear pain, no ear discharge, Hearing grossly intact. Nose: No nasal discharge. Mouth/Throat: moist mucous membranes, no redness, no lesions. Neck: Neck supple, non-tender, no cervical lymphadenopathy. Lungs: Clear RALPH to auscultation and percussion, No accessory muscle use. Cardio: Normal S1/S2, regular rhythm, no murmurs, no JVD Abdomen: Soft, non-tender, no palpable masses, peristalsis present, no guarding or rebound. Extremities: Symmetrical, no significant deformities, no peripheral edema , non-tender, peripheral pulses presents. Skin: No rashes, no lesions, warm to touch. Neuro: No focal neurological deficits. motor and sensory intact. Objective Labs 01/12/24 05:21 01/12/24 05:21 Labs: Laboratory Results - last 24 hr 01/11/24 01/12/24 16:40 05:21 WBC 5.1 D RBC 4.14 L Hgb 12.5 L Hct 37.5 L MCV 91 MCH 30.2 MCHC 33.3 RDW Std Deviation 48.5 H Plt Count 233 D Neut % (Auto) 56 Lymph % (Auto) 28 [place] % (Auto) 12 Eos % (Auto) 3 Baso % (Auto) 0 Neut # (Auto) 2.8 Lymph # (Auto) 1.4 [place] # (Auto) 0.6 Eos # (Auto) 0.2 Baso # (Auto) 0.0 Immature Gran # (Auto) 0.02 H Absolute Nucleated RBC 0.00 Immature Gran % 0 Nucleated RBC % 0 Sodium 139 Potassium 3.7 Chloride 107 Carbon Dioxide 24.7 Anion Gap 7 BUN 10 Creatinine 0.8 Estim Creat Clear Calc 90.0 eGFR > 60 BUN/Creatinine Ratio 13 Glucose 109 H Calculated Osmolality 277 Calcium 8.6 Corrected Calcium 8.7 Phosphorus 2.0 L Magnesium 1.9 Total Bilirubin 0.3 AST 19 ALT 12 Alkaline Phosphatase 83 Total Protein 6.1 Albumin 3.9 Globulin 2.2 L Albumin/Globulin Ratio 1.8 Urine Opiates Screen Negative Urine Fentanyl Screen Negative Ur Barbiturates Screen Negative U Amphetamin/Meth Scrn Positive A U Benzodiazepines Scrn Negative U Cocaine Metab Screen Negative U Marijuana (THC) Screen Negative Quality Measures Quality Measures none Advance care planning discussed with:: patient Assessment & Plan Assessment Current Active Medications: Generic Name Dose Route Start Last Admin Trade Name Freq PRN Reason Stop Dose Admin Acetaminophen 650 mg 01/11/24 04:38 Acetaminophen 325 Mg Tablet PO 02/10/24 04:37 Q6H PRN Fever >101.5 Acetaminophen 650 mg 01/11/24 04:38 01/12/24 10:04 Acetaminophen 325 Mg Tablet PO 02/10/24 04:37 650 mg Q6H PRN Administration PAIN SCALE 1-3 (mild Doxycycline Hyclate 100 mg 01/11/24 10:45 01/12/24 10:04 Doxycycline 100 Mg Tablet PO 01/18/24 10:44 100 mg BID JERRY Administration Famotidine 20 mg 01/11/24 09:00 01/12/24 10:03 Famotidine Inj 10 Mg/Ml Vial 2 Ml IVP 02/10/24 08:59 20 mg Q12HR JERRY Administration Heparin Sodium (Porcine) 5,000 unit 01/11/24 06:00 01/12/24 06:33 Heparin Sod Inj 5000 Unit/Ml Vial SC 01/25/24 05:59 5,000 unit Q8HR JERRY Administration Ceftriaxone Sodium/Dextrose 50 mls @ 100 mls/hr 01/11/24 10:37 01/12/24 10:03 Rocephin/D5w 1gm Iv Premix IV 01/18/24 10:36 100 mls/hr QDAY JERRY Administration Ondansetron HCl 4 mg 01/11/24 04:38 Ondansetron Inj 2 Mg/Ml Inj 2 Ml IV 02/10/24 04:37 Q6H PRN NAUSEA OR VOMITING Protocol Plan 68-year-old male with past medical history of substance abuse disorder was admitted to the hospital on 01/11/2024 due to concerns for small bowel obstruction. #Abdominal pain #Small bowel obstruction versus enteritis - resolved #Leukocytosis ?Patient came in with complaints of abdominal pain for the past 3 days prior to admission as well as inability to pass a bowel movement in the past 4 days. ?DDx small bowel obstruction versus enteritis given leukocytosis versus IBD ?Abdomen/pelvis CT showed abnormal small bowel fluid distention with wall thickening ?WBC on admission 13.3 and 9.3 today ?Small bowel series was negative for small bowel obstruction and he had a BM today. Patient also had bowel movement this morning Patient medically cleared for discharge but failed his walk test with the nurses today. PT eval ordered and pending discharge to [facility] once complete. Plan: ?Continue po diet ?D2 IV Rocephin and p.o. doxycycline [01/11/2024?] ?Will continue to monitor #Pilonidal cyst ?Patient has a ruptured cyst around the intergluteal cleft ?Was not draining any pus ?Given mild leukocytosis on admission, we started IV antibiotics. ?No spikes in fevers Plan: ?D2 IV Rocephin and p.o. doxycycline [01/11/2024?] ?Referral to wound care ?Will continue to monitor #Normocytic normochromic anemia ? Patient's hemoglobin at baseline is around 13 ?Hemoglobin today was 12.6 with no active signs of bleeding Plan: ?Will transfuse hemoglobin less than 7 ? Will continue to monitor #Essential Hypertension Patient does not appear to be on any home medication ?Patient blood pressure had been elevated on admission which was likely due to pain Currently BP 124/85. Plan: ?Consider antihypertensive medication such as amlodipine or hydralazine if patient's blood pressure becomes elevated again. ?Will continue to monitor #Hx of substance abuse U tox positive for methamphetamine #Hypophosphatemia Phosphorus 2 Patient repleted with 1 packet Neutra-Phos Disposition: PT eval and then discharge to [facility] Diet: Regular GI prophylaxis: not indicated DVT prophylaxis: Heparin Sc Code:Full Plan of care discussed with Attending Dr. Dubois and PGY2 Dr. John Mcginnis MD PGY 1 Attending Provider Attestation/Addendum I have examined the patient, reviewed labs and imaging findings, discussed the case with the resident(s), and reviewed entered orders. I agree with the plan of care as outlined in this note, with these additional summaries/recommendations: Patient seen at bedside. No acute overnight events. Patient had unsteady gait and lightheadedness while ambulating with nurse today. We will obtain physical therapy consultation and patient encouraged to stay hydrated. Small bowel obstruction resolved and patient no longer reporting abdominal pain. He endorses multiple bowel movements. Will continue antibiotics for possible superimposed infection of pilonidal cyst. Anticipate discharge in the next [address] Dubois
[2024-01-12 12:00] VITALS: BP 138/90; PULSE 60; RESP 17; TEMP 36.1; O2SAT 95
--- NOTE | 2024-01-12 12:14 | PC.SS ---
MARCY Mejias, stated pt was unsuccessful with getting up out of bed. Pt complained of being dizzy and not able to get up. SS contacted [facility] and spoke to , she stated she will request PT eval order from .
--- NOTE | 2024-01-12 13:49 | PC.NURSE ---
Received a call from Isabelle (daughter), stating that pt's brother Nilson [phone] lives in [place] and is willing to have him stay with him. Provided the pt with brothers information. public services librarian made aware.
--- NOTE | 2024-01-12 15:51 | PC.SS ---
Addendum entered by Ayana Myles 01/12/24 15:55: SS attempted to make over the phone contact with pt dtr, , gives an out of service tone. SS spoke to MARCY Gonzalez if dtr calls again to please forward call to SS. Original Note: SS spoke with pt at bedside in regards to pt brother willing for him to stay with him. Per pt he wants to go to a SNF for physical therapy. SS explained to pt that the SNFs are going to want to know his DC plan for when he is ready for DC from the facility. SS inquired if he will be okay to DC to brother residence, pt stated yes. SS submitted SNF referral via [facility] pending responses. SS also attempted to make over the phone contact with pt brother Nilson Wilkins [phone], no answer.
[2024-01-12 16:00] VITALS: BP 124/85; PULSE 65; RESP 17; TEMP 36.8; O2SAT 96
[2024-01-12 20:00] VITALS: BP 137/76; PULSE 61; RESP 17; TEMP 36.1; O2SAT 95
[2024-01-12] MEDS: HYDROcodone/APAP 5/325 TABLET 1 TAB PO (23:58)
[2024-01-13] VITALS: BP 136/90; PULSE 64; RESP 18; TEMP 36.6; O2SAT 94
[2024-01-13 04:00] VITALS: BP 125/67; PULSE 63; RESP 16; TEMP 36.3; O2SAT 93
[2024-01-13] MEDS: HEPARIN SOD INJ 5000 UNIT/ML VIAL SC (05:13)
[2024-01-13 05:51] LABS: Basophils % (Auto) 1 % (0-2.5); Eosinophils # (Auto) 0.2 Thou/mm3 (0.0-0.5); Eosinophils % (Auto) 5 % (0-10); Hemoglobin 13.7 g/dL (13.5-16.0); Immature Granulocytes % (Auto) 0 % (0-0); Immature Granulocytes Auto 0.01 Thou/mm3 (0.00-0.00); Lymphocytes # (Auto) 1.6 Thou/mm3 (1.0-4.8); Lymphocytes % (Auto) 39 % (10-50); Mean Corpuscular HGB Conc 33.4 g/dl (31.0-37.0); Mean Corpuscular Volume 90 fL (80-100); Monocytes # (Auto) 0.7 Thou/mm3 (0.0-0.8); Monocytes % (Auto) 16 % (0-12); Neutrophils # (Auto) 1.6 Thou/mm3 (1.8-7.7); Neutrophils % (Auto) 39 % (37-80); Nucleated Red Blood Cell % 0 /100 WBC (0); Platelet Count 266 Thou/mm3 (140-440); RDW Standard Deviation 46.9 fL (35.1-43.9); Red Blood Count 4.56 Miln/mm3 (4.50-5.90); White Blood Count 4.1 Thou/mm3 (3.8-10.6)
[2024-01-13 06:20] LABS: Alanine Aminotransferase 12 U/L (10-49); Albumin, Serum 3.9 gm/dL (3.4-4.8); Albumin/Globulin Ratio 1.4 (1.2-2.2); Alkaline Phosphatase 84 U/L (46-116); Anion Gap 7 (7-16); Aspartate Amino Transferase 19 U/L (0-34); BUN/Creatinine Ratio 16 Ratio (12-20); Bilirubin,Total 0.3 mg/dL (0.3-1.2); Blood Urea Nitrogen 13 mg/dL (9-23); Calcium 9.7 mg/dL (8.3-10.6); Calcium (Corrected) 9.8 mg/dL (8.5-10.1); Chloride 107 mMol/L (98-107); Creatinine (Component) 0.8 mg/dL (0.6-1.3); Globulin 2.7 gm/dL (2.3-3.5); Glucose 103 mg/dL (74-106); Osmolality,Calculated 279 (275-295); Phosphorous 3.4 mg/dL (2.4-5.1); Potassium 3.7 mMol/L (3.4-5.1); Sodium 140 mMol/L (136-145); Total Protein 6.6 gm/dL (5.7-8.2); eGFR > 60 See Note
[2024-01-13 07:39] VITALS: BP 124/90; BP 129/90; BP 133/98; PULSE 66; PULSE 67; PULSE 79
[2024-01-13 07:48] VITALS: BP 133/81; PULSE 54; RESP 18; TEMP 36.6; O2SAT 93
[2024-01-13] MEDS: DOXYCYCLINE 100 MG TABLET PO (08:35)
[2024-01-13] MEDS: FAMOTIDINE INJ 10 MG/ML VIAL 2 ML 20 MG IVP (08:35)
[2024-01-13] MEDS: cefTRIAXone/D5w 1gm IV premix 50 ML IV (08:35)
--- NOTE | 2024-01-13 09:37 | PD.RESPRO ---
Documentation for date of: 01/13/24 Exam Vital Signs Temp Pulse Resp BP Pulse Ox O2 Del Method 97.8 F 54 L 18 133/81 H 93 L Room Air 01/13/24 07:48 01/13/24 07:48 01/13/24 07:48 01/13/24 07:48 01/13/24 07:48 01/13/24 07:48 Objective Labs 01/13/24 05:05 01/13/24 05:05 Labs: Laboratory Results - last 24 hr 01/13/24 05:05 WBC 4.1 RBC 4.56 Hgb 13.7 Hct 41.0 MCV 90 MCH 30.0 MCHC 33.4 RDW Std Deviation 46.9 H Plt Count 266 D Neut % (Auto) 39 Lymph % (Auto) 39 [place] % (Auto) 16 H Eos % (Auto) 5 Baso % (Auto) 1 Neut # (Auto) 1.6 L Lymph # (Auto) 1.6 [place] # (Auto) 0.7 Eos # (Auto) 0.2 Baso # (Auto) 0.0 Immature Gran # (Auto) 0.01 H Absolute Nucleated RBC 0.00 Immature Gran % 0 Nucleated RBC % 0 Sodium 140 Potassium 3.7 Chloride 107 Carbon Dioxide 26.0 Anion Gap 7 BUN 13 Creatinine 0.8 Estim Creat Clear Calc 90.0 eGFR > 60 BUN/Creatinine Ratio 16 Glucose 103 Calculated Osmolality 279 Calcium 9.7 Corrected Calcium 9.8 Phosphorus 3.4 Magnesium 2.0 Total Bilirubin 0.3 AST 19 ALT 12 Alkaline Phosphatase 84 Total Protein 6.6 Albumin 3.9 Globulin 2.7 Albumin/Globulin Ratio 1.4 Quality Measures Quality Measures none Assessment & Plan Assessment Current Active Medications: Generic Name Dose Route Start Last Admin Trade Name Freq PRN Reason Stop Dose Admin Acetaminophen 650 mg 01/11/24 04:38 Acetaminophen 325 Mg Tablet PO 02/10/24 04:37 Q6H PRN Fever >101.5 Acetaminophen 650 mg 01/11/24 04:38 01/12/24 21:56 Acetaminophen 325 Mg Tablet PO 02/10/24 04:37 650 mg Q6H PRN Administration PAIN SCALE 1-3 (mild Doxycycline Hyclate 100 mg 01/11/24 10:45 01/13/24 08:35 Doxycycline 100 Mg Tablet PO 01/18/24 10:44 100 mg BID JERRY Administration Famotidine 20 mg 01/11/24 09:00 01/13/24 08:35 Famotidine Inj 10 Mg/Ml Vial 2 Ml IVP 02/10/24 08:59 20 mg Q12HR JERRY Administration Heparin Sodium (Porcine) 5,000 unit 01/11/24 06:00 01/13/24 05:13 Heparin Sod Inj 5000 Unit/Ml Vial SC 01/25/24 05:59 5,000 unit Q8HR JERRY Administration Ceftriaxone Sodium/Dextrose 50 mls @ 100 mls/hr 01/11/24 10:37 01/13/24 09:05 Rocephin/D5w 1gm Iv Premix IV 01/18/24 10:36 Infused QDAY JERRY Infusion Ondansetron HCl 4 mg 01/11/24 04:38 Ondansetron Inj 2 Mg/Ml Inj 2 Ml IV 02/10/24 04:37 Q6H PRN NAUSEA OR VOMITING Protocol
--- NOTE | 2024-01-13 11:42 | PC.SS ---
Addendum entered by Nora Garcia 01/13/24 13:40: SS assisted patient with transportation via uber to the [facility] at [address] [facility]. Original Note: SS met with patient at bed side, patient asked SS he would like for SS to assist him with calling [place] [employer]. Patient reported that he got evicted from his residents and stating he knows his rights and that his roommates have no rights in kicking him out. While on the phone patient informed PD that there was a body buried in the back yard of the residents. [place] [employer] informed SS that they would be on there way to patients room to get more information. SS will stand by for further needs.
[2024-01-13 12:00] VITALS: BP 132/66; PULSE 52; RESP 17; TEMP 36.2; O2SAT 95
--- NOTE | 2024-01-13 12:53 | PC.NURSE ---
[employer] at bedside talking with patient. I will notify Nora when [employer] leaves pt's room.
--- NOTE | 2024-01-13 16:39 | ESDS_ITS ---
<Statement entered by Dev Galloway MD - 01/13/24 17:54> I saw and examined the patient, and I agree with current management stated by Dr Santosh MD,PGY1. Plan of care was discussed with the attending physician and resident physician. Disclaimer: Despite multiple revisions, due to the dictation software being used, the document bellow may not be free of grammatical errors including phonetic/typographic errors. However, this does not deter from our commitment to providing health care in the patient's best interest in mind. Dr. John MD, PGY 2 Planned Discharge Date 01/13/24 DS: Providers Provider Date of admission: 01/11/24 04:38 Primary care physician: Physician No Primary/Family Admitting Provider: Ki Vaughn MD Attending Provider on Admission: Ki Vaughn MD Consults: 01/11/24 11:02 Health Equity Referral - Knowledge Deficit Routine Comment: Positive screening for knowledge deficit needs. Health Equity Referral - Nutrition Routine Comment: Positive screening for nutrition needs. Health Equity Referral - Safety Routine Comment: Positive screening for safety needs. Health Equity Referral - Transportation Routine Comment: Positive screening for transportation needs. Health Equity Referral - Utilities Routine Comment: Positive screening for utility assistance needs. 01/11/24 12:27 Referral Wound Care Routine Comment: 01/12/24 12:51 PT [Referral Physical Therapy] Routine Comment: Physician Instructions: Instructions: Patient medically cleared, but too weak to ambulate Attending Provider on DC: Santosh Mcginnis MD Discharging Provider: Santosh Mcginnis MD DS: Diagnosis Problem List Completed Was Problem List Reviewed/Reconciled?: Yes Hospital Course Hospital Course Hospital course: 68-year-old male with past medical history of substance abuse disorder was admitted to the hospital on 01/11/2024 due to concerns for small bowel obstruction. Patient had abdominal pain for 3 days prior prior to admission and no bowel movements for the same time as well. Incidentally patient was found to have a ruptured pilonidal cyst between his gluteal cleft. During hospitalization he had an abdomen/pelvis CT which showed abnormal small bowel fluid distention with wall thickening. Small bowel series was negative for small bowel obstruction as well. And patient had a bowel movement the same day of admission and SBO was ruled out. Patient was also treated with IV ceftriaxone for 2 days and p.o. doxycycline for 2 days to cover for possible small bowel enteritis as well as pilonidal cyst. All patient's labs have now returned to baseline and patient is now fit for [facility] to [facility]. 1. Abdominal pain 2. Small bowel obstruction ruled out 3. Gastroenteritis?resolved Patient had Abdo/pelvis CT which showed small bowel fluid distention with wall thickening, however small bowel series was negative for any small bowel obstruction and patient had multiple bowel movements during his hospitalization. He was treated with 2 days of ceftriaxone IV and doxycycline p.o. Plan: 1. You have been started on an antibiotic Bactrim 400/80 mg take 1 tablet twice a day for 6 more days to complete the antibiotic course. 2. You have been started on a medication Protonix, please 1 tablet once a day 3. Please follow-up with your PCP within 1 week of discharge 4. If you have symptoms persist or worsen please call your PCP, 911 or present to the ED. 4. Ruptured pilonidal cyst Patient was found to have ruptured pilonidal cyst on his gluteal cleft. Patient was treated with 2 days of ceftriaxone IV and doxycycline p.o. He also received wound care Plan: ? Please change your dressing daily and go to wound care center if you need assistance. 5. Normocytic anemia On admission based Hb was 12.6. Baseline between 12?13 Plan: ? Follow-up with your PCP for further evaluation of your low hemoglobin. ? Recommend iron panel as outpatient to further evaluate. 6. Methamphetamine abuse U tox was positive for methamphetamine on this admission. Patient extensively counseled on cessation and agreed to stop. Plan: ? Recommend Narcotics Anonymous as outpatient to help in methamphetamine cessation. 7. Hypophosphatemia Patient's phosphorus was 2 and repleted with Neutra-Phos after which it returned to 3.4. We are grateful to be able to participate in Mr. Wilkins's care. We wish him the best. Plan of care discussed with Attending Dr. Dubois and PGY2 Dr. John Mcginnis MD PGY 1 Time Spent with Patient Time attestation: Total time spent providing and/or coordinating discharge services: Time spent: Greater than 30 minutes (35) Exam Vital Signs Temp Pulse Resp BP Pulse Ox O2 Del Method 97.1 F 52 L 17 132/66 H 95 Room Air 01/13/24 12:00 01/13/24 12:00 01/13/24 12:00 01/13/24 12:00 01/13/24 12:00 01/13/24 12:00 Narrative Exam General: A/O x3 , disheveled, drowsy Eyes: PERRL, EOMI. Anicteric, vision grossly intact. Ears: No ear pain, no ear discharge, Hearing grossly intact. Nose: No nasal discharge. Mouth/Throat: moist mucous membranes, no redness, no lesions. Neck: Neck supple, non-tender, no cervical lymphadenopathy. Lungs: Clear RALPH to auscultation and percussion, No accessory muscle use. Cardio: Normal S1/S2, regular rhythm, no murmurs, no JVD Abdomen: Soft, non-tender, no palpable masses, peristalsis present, no guarding or rebound. Extremities: Symmetrical, no significant deformities, no peripheral edema , non-tender, peripheral pulses presents. Skin: No rashes, no lesions, warm to touch. pilonidal cyst in gluteal cleft. Minimal discharge Neuro: No focal neurological deficits. motor and sensory intact. Discharge Plan Plan Patient Disposition: HOME (Self Care) Patient condition on transfer: Stable Care Plan Goals: Take Bactrim 400-80 mg 1 tab twice a day for 6 more days to complete antibiotic course Take Protonix as prescribed Follow up with PCP as outpatient within a week Change dressing daily Patient is discharged to home In case of emergency or worsening signs and symptoms come back to the ED or call 911 Prescriptions/Referrals Prescriptions/Med Rec: New sulfamethoxazole-trimethoprim [Bactrim] 400-80 mg tablet 1 tab PO BID 6 Days Qty: 12 0RF Continued pantoprazole [Protonix] 40 mg tablet,delayed release (DR/EC) 40 mg PO QDAY Qty: 14 0RF Discontinued cefuroxime axetil 500 mg tablet 500 mg PO BID Qty: 14 0RF Referrals: No Primary/Family,Physician [Primary Care Provider] - Patient/Caregiver Discharge Instructions Education Materials: ED ABSCESS Andressa-Anal Abx only Print Language: Vincentian Stand Alone Forms: Ammy Award Info., Patient Portal Info Letter Discharge Order Discharge Orders: Discharge (Routine); Ordered 01/13/24 Ordered By: Sara Tuttle Quality Discharge Quality Measures VTE prophylaxis Attestestation Attestation I have examined the patient, reviewed labs and imaging findings, discussed the case with the resident(s), and reviewed entered orders. I agree with the plan of care as outlined in this note. Dr. Dubois
== END 2024-01-13 13:46 | disposition home or self-care (01) | DRG 392 ==
LOC: SERX 21:28 → SERHOLD 01-11 04:54 → S3NX 01-11 09:16
PROVIDERS: Physician Assistant; Student in an Organized Health Care Education/Training Program; Admitting Provider Internal Medicine; Emergency Provider Emergency Medicine; Visit Provider Internal Medicine
DX: K52.9 Noninfective gastroenteritis and colitis, unspecified (principal); L05.01 Pilonidal cyst with abscess; L03.317 Cellulitis of buttock; Z59.01 Sheltered homelessness; I10 Essential (primary) hypertension; D64.9 Anemia, unspecified; E83.51 Hypocalcemia; F15.10 Other stimulant abuse, uncomplicated; F10.10 Alcohol abuse, uncomplicated; L89.151 Pressure ulcer of sacral region, stage 1; F17.210 Nicotine dependence, cigarettes, uncomplicated; E83.39 Other disorders of phosphorus metabolism; Z88.5 Allergy status to narcotic agent
CPT/HCPCS: 36415; 74018; 74176; 74250; 80053; 80307; 81001; 83690; 83735; 84100; 85025; 87811; 96360; 96372; 97162; 99285; J0696; J1643; J3490; J7030; Q0162; Q9963; A9270; J1644

== ENCOUNTER 2024-01-14 00:54 | Emergency (ER) | payer MEDICARE, MEDICAID, SELFPAY ==
[2024-01-14 00:55] VITALS: BMI 25.0
[2024-01-14 01:04] VITALS: BP 165/93; PULSE 78; RESP 18; TEMP 36.4; O2SAT 98
--- NOTE | 2024-01-14 01:12 | XR_ITS ---
Examination: Abdomen AP single view Technique: AP portable supine abdomen, single view Exam date and time: January 14, 2024 0117 hrs. Indications: Abdominal pain with nausea beginning this week Findings: Moderate air and stool throughout the colon No obstruction No free air Moderate narrowing left hip joint Impression: Moderate air and stool throughout the colon
--- NOTE | 2024-01-14 01:15 | XR_ITS ---
Examination: Knee, right , 3 views Technique: Knee AP, lateral, oblique 3 views Date and time of exam: 2023 011 hrs. Indications: Right knee pain this week Comparison: 2011. Findings: Mild to moderate tricompartment osteoarthritis Small knee effusion No fracture Prominent osteopenia Impression: Mild to moderate tricompartment osteoarthritis
--- NOTE | 2024-01-14 01:17 | EDNOTE_ITS ---
<Statement entered by Liz Hoang MD - 01/20/24 17:48> As co-signing physician, I was present and available for consult prn. I concur with the plan and care as documented by the midlevel provider. ED Abdominal Pain RME/HPI General Chief Complaint: General Adult/Misc Complain Stated complaint: BACK PAIN,KNEE PAIN, HUDSON Time seen by provider: 01/14/24 01:07 Arrival date/time: 01/14/24 00:54 68-year-old male past medical history substance use presents emergency department complaining of abdominal pain and right knee pain that started 2 hours ago. Patient reports was just discharged yesterday from the hospital due to bowel obstruction. Patient denies any fever, chills, nausea vomiting, diarrhea, or any other associated symptom. Source: patient Mode of arrival: ambulatory Limitations: no limitations Related Data Previous Rx's ?Medication ?Instructions ?Recorded pantoprazole 40 mg tablet,delayed 40 mg PO QDAY #14 tabs 09/14/23 release (Protonix) sulfamethoxazole 400 1 tab PO BID 6 days #12 tabs 01/12/24 mg-trimethoprim 80 mg tablet (Bactrim) Allergies Allergy/AdvReac Type Severity Reaction Status Date / Time codeine Allergy Severe Vomiting Verified 07/25/22 02:08 diphenhydramine Allergy Severe Nausea Verified 07/25/22 02:08 Review of Systems Review of Systems Systems Reviewed: All systems reviewed, normal except as documented Constitutional Constitutional: Reports system reviewed and no additional complaints, except as documented, Denies body ache(s), Denies chills and Denies fever(s) Eyes Eyes: Reports system reviewed and no additional complaints, except as documented and Denies change in vision ENT Ears, Nose, Mouth, and Throat: Reports system reviewed and no additional complaints, except as documented, Denies disequilibrium, Denies dizziness, Denies sore throat and Denies vertigo Cardiovascular Cardiovascular: Reports system reviewed and no additional complaints, except as documented, Denies chest pain and Denies dyspnea Respiratory Respiratory: Reports system reviewed and no additional complaints, except as documented, Denies chest congestion, Denies cough and Denies dyspnea Gastrointestinal Gastrointestinal: Reports system reviewed and no additional complaints, except as documented, Reports abdominal pain, Denies nausea and Denies vomiting Musculoskeletal Musculoskeletal: Reports system reviewed and no additional complaints, except as documented, Denies abnormal gait and Reports arthralgias Integumentary/Breasts Skin/Breast: Reports system reviewed and no additional complaints, except as documented, Denies erythema, Denies rash and Denies wounds Neurologic Neurologic: Reports system reviewed and no additional complaints, except as documented, Denies abnormal gait, Denies disequilibrium, Denies dizziness and Denies vertigo Past Medical History Past Medical History CARDIAC: Negative Cardiac Disorders or Congestive Heart Failure RESPIRATORY: Negative Chronic Obstructive Pulmonary Disease (COPD) or Asthma GENITOURINARY: Negative Renal Disease ENT: Positive Cataracts ENDOCRINE: Positive Hyperthyroidism; Negative Diabetes Mellitus Type 1 or Diabetes Mellitus Type 2 HEMATOLOGIC: Negative Sickle Cell Disease PSYCHO/SOCIAL: Positive Recreational Drug Use (meth) Social History SMOKING STATUS: Current every day smoker ED Exam General Limitations: Present no limitations General appearance: Present alert and in no apparent distress Head Head exam: Present atraumatic Eye Eye exam: Present normal appearance, PERRL and EOMI ENT ENT exam: Present normal exam, normal oropharynx and mucous membranes moist Neck Neck exam: Present normal inspection, full ROM and trachea midline Chest Chest inspection: Present normal inspection and symmetric chest wall rise Respiratory Respiratory exam: Present normal lung sounds bilaterally Cardiovascular Cardiovascular exam: Present regular rate, normal rhythm and normal heart sounds Abdominal Exam Abdominal exam: Present soft and normal bowel sounds; Absent distention, tenderness or rebound Extremities Exam Extremities exam: Present normal inspection and full ROM Back Exam Back exam: Present normal inspection and full ROM Neurological Exam Neurological exam: Present alert, oriented X3 and CN II-XII intact Psychiatric Psychiatric exam: Present normal affect and normal mood Skin Skin exam: Present warm, dry, intact and normal color Course Quality Measures none Orders Category Date Time Status XR abdomen 1V Stat Exams 01/14/24 01:12 Taken XR knee RT 3V Stat Exams 01/14/24 01:15 Taken Ondansetron Odt [Zofran Odt] Med 01/14/24 01:15 Discontinued 4 mg PO X1 ONE Ondansetron Odt [Zofran Odt] Med 01/14/24 01:19 Discontinued 4 mg PO X1 ONE Vital Signs Vital signs: Vital Signs Temperature 97.5 F 01/14/24 01:04 Pulse Rate 78 01/14/24 01:04 Respiratory Rate 18 01/14/24 01:04 Blood Pressure 165/93 H 01/14/24 01:04 Pulse Oximetry (%) 98 01/14/24 01:04 Oxygen Delivery Method Room Air 01/14/24 01:04 98% room air within normal limits Abdominal Pain MDM MDM Narrative MDM Narrative:: 68-year-old male past medical history substance use presents emergency department complaining of abdominal pain and right knee pain that started 2 hours ago. Patient reports was just discharged yesterday from the hospital due to bowel obstruction. Patient denies any fever, chills, nausea vomiting, diarrhea, or any other associated symptom. Patient is abdomen is soft and nontender. Patient denies any nausea or vomiting and reports last bowel movement happened yesterday. Patient reports a a hamburger for dinner last night without any vomiting. Patient recently discharged from hospital yesterday for small bowel obstruction that was resolved and was sent home on oral antibiotics for pilonidal cyst. Patient reports is on antibiotics and has follow-up appointment with primary care provider on 01/14/2024. Patient eloped before final disposition. Patient data External records reviewed:: [facility] previous records Clinical information provided by:: patient Social determinants that could affect healthcare access:: substance use Patient has the following chronic illnesses:: See chart How is presenting disease/condition affected by chronic disease/condition?: uneffected by Evaluation data The following diagnostics were reviewed and interpreted by me:: radiology exam(s) Lab and/or radiology exams considered but not ordered:: Ordered Interpretation Summary: Interpreted by me Medications / Prescriptions Medications or Prescriptions considered but not ordered:: Ordered Medication administrations:: Medication Administration History Discontinued Medications Ondansetron HCl (Ondansetron Odt 4 Mg Tabrap) 4 mg PO X1 ONE; Protocol Stop: 01/14/24 01:16 Last Admin: 01/14/24 01:29 Dose: Not Given Documented By: Non-Admin Reason: Cancelled by Provider Ondansetron HCl (Ondansetron Odt 4 Mg Tabrap) 4 mg PO X1 ONE; Protocol Stop: 01/14/24 01:20 Last Admin: 01/14/24 01:29 Dose: 4 mg Documented By: Given Consultations Consultation(s) initiated? (list below): No Diagnosis Differential diagnosis abdominal pain: abdominal pain, acute appendicitis, calculus of kidney, constipation, diverticulitis, gastroenteritis, pancreatitis and small bowel obstruction Most likely diagnosis given after review of the tests above:: Eloped Admission Indicated Admission indicated?: not indicated Admission Request Was there a request for admission?: No Disposition Plan Disposition Plan: other (specify) (Eloped) Discharge Plan Plan Patient Disposition: Elopement Prescriptions/Referrals Prescriptions/Med Rec: No Action pantoprazole [Protonix] 40 mg tablet,delayed release (DR/EC) 40 mg PO QDAY Qty: 14 0RF sulfamethoxazole-trimethoprim [Bactrim] 400-80 mg tablet 1 tab PO BID 6 Days Qty: 12 0RF Problem List Clinical Impression: Eloped from emergency department Patient/Caregiver Discharge Instructions Print Language: Upper Sorbian PA/SYSTEM SAFETY ENGINEER Supervising Physician PA/SYSTEM SAFETY ENGINEER Supervising Physician: Dr. Hoang
[2024-01-14] MEDS: ONDANSETRON ODT 4 MG TABRAP PO (01:29)
--- NOTE | 2024-01-14 02:43 | PC.NURSE ---
Security informed me that pt took off and left the ER.
== END 2024-01-14 02:44 | disposition left against medical advice (07) ==
LOC: SERX 04:55
PROVIDERS: Emergency Provider Emergency Medicine; PCP Family Medicine
DX: K56.609 Unspecified intestinal obstruction, unspecified as to partial versus complete obstruction (principal); M17.11 Unilateral primary osteoarthritis, right knee; L05.91 Pilonidal cyst without abscess; Z53.21 Procedure and treatment not carried out due to patient leaving prior to being seen by health care provider
CPT/HCPCS: 73562; 74018; 99281; Q0162

== ENCOUNTER 2024-04-20 05:41 | Emergency (ER) | payer MEDICARE, MEDICAID, SELFPAY ==
[2024-04-20 05:42] VITALS: PULSE 78; RESP 20; O2SAT 98; BMI 23.6
[2024-04-20 05:50] VITALS: BP 161/88; PULSE 81; RESP 18; TEMP 37.2; O2SAT 98
--- NOTE | 2024-04-20 06:30 | PD.EDADULT ---
ED General RME/HPI General Chief complaint: General Adult/Misc Complain Stated complaint: THINKS HE HAS BUGS INSIDE HIS SKIN Time Seen by Provider: 04/20/24 06:08 Source: patient Arrival date/time: 04/20/24 05:41 68-year-old male with no known medical history presents to the emergency room with a chief complaint of lower back pain as well as feeling he has bugs crawling out of his skin x 1 day Mode of arrival: ambulatory Limitations: no limitations Related Data Previous Rx's ?Medication ?Instructions ?Recorded pantoprazole 40 mg tablet,delayed 40 mg PO QDAY #14 tabs 09/14/23 release (Protonix) Allergies Allergy/AdvReac Type Severity Reaction Status Date / Time codeine Allergy Severe Vomiting Verified 07/25/22 02:08 diphenhydramine Allergy Severe Nausea Verified 07/25/22 02:08 Review of Systems Review of Systems Systems Reviewed: All systems reviewed, normal except as documented Constitutional Constitutional: Reports system reviewed and no additional complaints, except as documented, Denies fatigue, Denies fever(s), Denies headache(s) and Denies weakness Eyes Eyes: Reports system reviewed and no additional complaints, except as documented, Denies blurry vision and Denies change in vision ENT Ears, Nose, Mouth, and Throat: Reports system reviewed and no additional complaints, except as documented, Denies otalgia, Denies headache(s), Denies nasal congestion, Denies throat swelling and Denies vertigo Cardiovascular Cardiovascular: Reports system reviewed and no additional complaints, except as documented, Denies chest pain, Denies dyspnea and Denies dyspnea on exertion Respiratory Respiratory: Reports system reviewed and no additional complaints, except as documented, Denies chest congestion, Denies cough, Denies dyspnea, Denies dyspnea on exertion and Denies wheezing Gastrointestinal Gastrointestinal: Reports system reviewed and no additional complaints, except as documented, Denies abdominal pain, Denies cramping, Denies nausea and Denies vomiting Genitourinary Genitourinary: Reports system reviewed and no additional complaints, except as documented, Denies dysuria and Denies hematuria Musculoskeletal Musculoskeletal: Reports system reviewed and no additional complaints, except as documented, Reports arthralgias and Reports back pain Integumentary/Breasts Skin/Breast: Reports system reviewed and no additional complaints, except as documented and Denies wounds Neurologic Neurologic: Reports system reviewed and no additional complaints, except as documented, Denies confusion, Denies headache(s), Denies lack of coordination, Denies vertigo and Denies weakness Psychiatric Psychiatric: Reports system reviewed and no additional complaints, except as documented, Denies anxiety, Denies confusion, Denies depression, Denies paranoia, Denies suicidal ideation and Denies tactile hallucinations Endocrine Endocrine: Reports system reviewed and no additional complaints, except as documented and Denies fatigue Hematologic/Lymphatic Hematologic/Lymphatic: Reports system reviewed and no additional complaints, except as documented and Denies lymphadenopathy Allergic/Immunologic Allergic/Immunologic: Reports system reviewed and no additional complaints, except as documented, Denies throat swelling, Denies urticaria and Denies wheezing Past Medical History Past Medical History CARDIAC: Negative Cardiac Disorders or Congestive Heart Failure RESPIRATORY: Negative Chronic Obstructive Pulmonary Disease (COPD) or Asthma GENITOURINARY: Negative Renal Disease ENT: Positive Cataracts ENDOCRINE: Positive Hyperthyroidism; Negative Diabetes Mellitus Type 1 or Diabetes Mellitus Type 2 HEMATOLOGIC: Negative Sickle Cell Disease PSYCHO/SOCIAL: Positive Recreational Drug Use (meth) Social History SMOKING STATUS: Current every day smoker ED Exam General Limitations: Present no limitations General appearance: Present alert and in no apparent distress Head Head exam: Present atraumatic Eye Eye exam: Present normal appearance, PERRL and EOMI ENT ENT exam: Present normal exam, normal oropharynx and mucous membranes moist Neck Neck exam: Present normal inspection, full ROM and trachea midline Chest Chest inspection: Present normal inspection and symmetric chest wall rise Respiratory Respiratory exam: Present normal lung sounds bilaterally Cardiovascular Cardiovascular exam: Present regular rate, normal rhythm and normal heart sounds Abdominal Exam Abdominal exam: Present soft and normal bowel sounds Extremities Exam Extremities exam: Present normal inspection and full ROM Back Exam Back exam: Present normal inspection, full ROM, tenderness and vertebral tenderness Back 1 view image:  1. Tenderness with palpation Neurological Exam Neurological exam: Present alert, oriented X3 and CN II-XII intact Psychiatric Psychiatric exam: Present normal affect and normal mood; Absent depressed, agitated, anxious, flat affect, manic, homicidal ideation or suicidal ideation Expanded Psychiatric Exam Expanded psych exam: Present visual hallucinations and other (Formication); Absent poor eye contact, delusional, paranoid or auditory hallucinations Skin Skin exam: Present warm, dry, intact and normal color Course Quality Measures none Orders Category Date Time Status Ketorolac Inj [Toradol Inj] Med 04/20/24 06:16 Discontinued 30 mg IM X1 ONE Vital Signs Vital signs: Vital Signs Temperature 98.9 F 04/20/24 05:50 Pulse Rate 81 04/20/24 05:50 Respiratory Rate 18 04/20/24 05:50 Blood Pressure 161/88 H 04/20/24 05:50 Pulse Oximetry (%) 98 04/20/24 05:50 Oxygen Delivery Method Room Air 04/20/24 05:50 O2 saturation 98% on room air MDM Patient data External records reviewed:: [facility] previous records Clinical information provided by:: patient Social determinants that could affect healthcare access:: none Patient has the following chronic illnesses:: No chronic illness How is presenting disease/condition affected by chronic disease/condition?: no chronic disease Evaluation data The following diagnostics were reviewed and interpreted by me:: lab results and radiology exam(s) Lab and/or radiology exams considered but not ordered:: Labs and radiology exams considered and ordered Interpretation Summary: N/A Medications Medications considered but not ordered:: Medication given Medication administrations:: Medication Administration History Discontinued Medications Ketorolac Tromethamine (Ketorolac Inj 60 Mg/2 Ml Vial) 30 mg IM X1 ONE Stop: 04/20/24 06:17 Last Admin: 04/20/24 06:54 Dose: 30 mg Documented By: CVL Medication given Consultations Consultation(s) initiated? (list below): No Diagnosis Differential Diagnosis ED Complaint MDM: Chronic back pain/formication/altered mental status Most likely diagnosis given after review of the tests above:: Formication Admission Indicated Admission indicated?: not indicated Explain why admission is indicated or not indicated:: N/A Admission Request Was there a request for admission?: No Disposition Plan Disposition Plan: Discharge Discharge Attestation Discharge Attestation: The patient and all family members were given an opportunity to ask questions and understood the discharge instructions. Discharge instructions specifically effects, indications for sooner follow up or return to the emergency department, and the expected course of current diagnosis. Patient condition: Stable Medical Decision Making [facility] Narrative MDM Narrative: 68-year-old male with no known medical history presents to the emergency room with a chief complaint of lower back pain as well as feeling he has bugs crawling out of his skin x 1 day Clinically the patient is hemodynamically stable. Physical examination shows a normal neurological exam. The patient is a GCS of 15 he is alert and oriented x 3. The patient states he feels like there is bugs crawling out of his skin. There are no bugs crawling out of the skin. The patient is also complaining of lumbar back pain. Patient states he has a history of back problems and states this pain is worse this morning. Medication was given for his pain and the patient was discharged patient was educated to follow-up with primary care provider and return to the emergency room for any evidence of worsening signs or symptoms Differential Diagnosis Differential Diagnosis: Chronic back pain/formication/altered mental status Discharge Plan Plan Patient Disposition: HOME (Self Care) Disposition Comment: Stable Prescriptions/Referrals Prescriptions/Med Rec: No Action pantoprazole [Protonix] 40 mg tablet,delayed release (DR/EC) 40 mg PO QDAY Qty: 14 0RF Problem List Clinical Impression: Chronic back pain, Formication, Methamphetamine use Patient/Caregiver Discharge Instructions Education Materials: ED Chronic Pain, ED Drug Abuse Additional Instructions: Please follow-up with your primary care provider in the next 24 to 48 hours. At this time there are no bugs crawling around her skin. Please stop using methamphetamine. A shot of pain medication was given to help you with your back pain. Please follow-up with your primary care provider. For any evidence of worsening signs or symptoms return to the emergency room immediately Print Language: [place] Citizen Stand Alone Forms: Ammy Award Info., Patient Portal Info Letter PA/MEGN Supervising Physician YOLA/MENG Supervising Physician: Dr. Cassidy
[2024-04-20] MEDS: KETOROLAC INJ 60 MG/2 ML VIAL 30 MG IM (06:54)
[2024-04-20 07:06] VITALS: RESP 18
== END 2024-04-20 07:07 | disposition home or self-care (01) ==
PROVIDERS: Emergency Provider Emergency Medicine; PCP Family Medicine
DX: G89.29 Other chronic pain (principal); M54.50 Low back pain, unspecified; R20.2 Paresthesia of skin; F15.90 Other stimulant use, unspecified, uncomplicated; F17.210 Nicotine dependence, cigarettes, uncomplicated; Z88.5 Allergy status to narcotic agent
CPT/HCPCS: 96372; 99283; J1885

== ENCOUNTER 2024-05-06 02:54 | Emergency (ER) | payer MEDICARE, MEDICAID, SELFPAY ==
[2024-05-06 02:55] VITALS: BMI 22.3
[2024-05-06 03:10] VITALS: BP 169/79; PULSE 81; RESP 19; TEMP 36.9; O2SAT 94
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
== END 2024-05-06 03:43 | disposition home or self-care (01) ==
LOC: SERX 04:20
PROVIDERS: Emergency Provider Emergency Medicine; PCP Family Medicine
DX: T21.02XA Burn of unspecified degree of abdominal wall, initial encounter (principal); X11.8XXA Contact with other hot tap-water, initial encounter
CPT/HCPCS: 99282

== ENCOUNTER 2024-06-01 05:07 | Emergency (ER) | payer MEDICARE, MEDICAID, SELFPAY ==
--- NOTE | 2024-06-01 06:23 | XR_ITS ---
Examination: PA lateral chest 2 views Technique: Upright PA lateral chest 2 views Exam date and time: June 01, 2024 at 0748 hrs. Indications: Chest pain findings: The. Findings: Normal heart size Mild hyperexpansion No pneumonia or pulmonary edema Impression: Mild hyperexpansion
[2024-06-01 06:43] LABS: Collection Type, Urine Clean Catch; Squamous Epithelial Cell,Urine 0 /hpf (0-5)
[2024-06-01] MEDS: IBUPROFEN TAB 600 MG TABLET PO (06:46)
[2024-06-01] MEDS: METOCLOPRAMIDE 5 MG TABLET 10 MG PO (06:47)
[2024-06-01 07:01] LABS: Basophils # (Auto) 0.1 Thou/mm3 (0.0-0.2); Basophils % (Auto) 1 % (0-2.5); Eosinophils # (Auto) 0.4 Thou/mm3 (0.0-0.5); Eosinophils % (Auto) 5 % (0-10); Hematocrit 39.5 % (41.0-53.0); Hemoglobin 13.3 g/dL (13.5-16.0); Immature Granulocytes % (Auto) 0 % (0-0); Immature Granulocytes Auto 0.02 Thou/mm3 (0.00-0.00); Lymphocytes # (Auto) 1.9 Thou/mm3 (1.0-4.8); Lymphocytes % (Auto) 25 % (10-50); Mean Corpuscular HGB Conc 33.7 g/dl (31.0-37.0); Mean Corpuscular Hemoglobin 30.2 pg (25.0-35.0); Mean Corpuscular Volume 90 fL (80-100); Monocytes # (Auto) 0.8 Thou/mm3 (0.0-0.8); Monocytes % (Auto) 11 % (0-12); Neutrophils # (Auto) 4.4 Thou/mm3 (1.8-7.7); Neutrophils % (Auto) 58 % (37-80); Nucleated Red Blood Cell % 0 /100 WBC (0); Platelet Count 242 Thou/mm3 (140-440); RDW Standard Deviation 44.8 fL (35.1-43.9); White Blood Count 7.6 Thou/mm3 (3.8-10.6)
[2024-06-01 07:17] LABS: Bacteria,Urine 3+; Bilirubin,Urine Negative (Negative); Blood,Urine Negative (Negative); Color,Urine Lt-Yellow (Lt Yel-Yel); Glucose, Urine Negative (Negative); Ketones,Urine Negative (Negative); Leukocyte Esterase,Urine Positive (Negative); Nitrite,Urine Positive (Negative); PH,Urine 6.5 (5.0-7.0); Protein,Urine Negative (Neg - Trace); RBC,Urine 3 /hpf (0-3); Specific Gravity,Urine 1.019 (1.001-1.035); Urobilinogen,Urine Negative mg/dL (0.0-1.0); WBC,Urine 41 /hpf (0-5)
[2024-06-01 07:26] LABS: Alanine Aminotransferase 18 U/L (10-49); Albumin, Serum 4.2 gm/dL (3.4-4.8); Albumin/Globulin Ratio 1.5 (1.2-2.2); Alkaline Phosphatase 106 U/L (46-116); Anion Gap 5 (7-16); Aspartate Amino Transferase 26 U/L (0-34); BUN/Creatinine Ratio 16 Ratio (12-20); Bilirubin,Total 0.4 mg/dL (0.3-1.2); Blood Urea Nitrogen 14 mg/dL (9-23); Calcium 9.3 mg/dL (8.3-10.6); Calcium (Corrected) 9.3 mg/dL (8.5-10.1); Chloride 106 mMol/L (98-107); Creatinine (Component) 0.9 mg/dL (0.6-1.3); Globulin 2.8 gm/dL (2.3-3.5); Glucose 90 mg/dL (74-106); Lipase 31 U/L (12-53); Osmolality,Calculated 283 (275-295); Potassium 4.1 mMol/L (3.4-5.1); Sodium 142 mMol/L (136-145); Troponin I < 0.020 ng/mL (0.0-0.045); eGFR > 60 See Note
[2024-06-01 07:28] LABS: Clarity,Urine Hazy (Clear/Hazy); Culture Indicated,Urine Yes
[2024-06-01 07:56] LABS: Amphetamine/Methamp Scrn,U Positive (Negative); Barbiturate Screen,Urine Negative (Negative); Benzodiazepines Screen,Urine Negative (Negative); Benzoylecgonine Screen, Ur Negative (Negative); Fentanyl Screen,Urine Negative (Negative); Opiate Screen,Urine Negative (Negative); THC Screen,Urine Negative (Negative)
--- NOTE | 2024-06-01 08:02 | EDNOTE_ITS ---
ED General RME/HPI General Chief complaint: General Adult/Misc Complain Stated complaint: BODYACHES Time Seen by Provider: 06/01/24 05:22 Arrival date/time: 06/01/24 05:07 68-year-old male with history of methamphetamine abuse who uses methamphetamine regularly presents emerged from today for complaints of generalized body aches as well as concerns for bugs coming out of his legs Limitations: no limitations Related Data Previous Rx's ?Medication ?Instructions ?Recorded pantoprazole 40 mg tablet,delayed 40 mg PO QDAY #14 ta bs 09/14/23 release (Protonix) ciprofloxacin HCl 500 mg tablet 500 mg PO BID 7 days # 14 tabs 06/01/24 ibuprofen 600 mg tablet 600 mg PO Q6H #30 tabs 06/01 Allergies Allergy/AdvReac Type Severity Reaction Status Date / Time codeine Allergy Severe Vomiting Verified 07/25/22 02:08 diphenhydramine Allergy Severe Nausea Verified 06/01/24 05:09 Review of Systems Review of Systems Systems Reviewed: All systems reviewed, normal except as documented Constitutional Constitutional: Reports system reviewed and no additional complaints, except as documented, Reports body ache(s), Denies fever(s) and Denies headache(s) Eyes Eyes: Reports system reviewed and no additional complaints, except as documented and Denies blurry vision ENT Ears, Nose, Mouth, and Throat: Reports system reviewed and no additional complaints, except as documented, Denies headache(s), Denies nasal congestion and Denies nasal discharge Cardiovascular Cardiovascular: Reports system reviewed and no additional complaints, except as documented, Denies chest pain and Denies dyspnea Respiratory Respiratory: Reports system reviewed and no additional complaints, except as documented, Denies chest congestion, Denies cough and Denies dyspnea Gastrointestinal Gastrointestinal: Reports system reviewed and no additional complaints, except as documented and Reports abdominal pain Integumentary/Breasts Skin/Breast: Reports system reviewed and no additional complaints, except as documented and Denies rash Neurologic Neurologic: Reports system reviewed and no additional complaints, except as documented, Reports as per HPI and Denies headache(s) Past Medical History Past Medical History CARDIAC: Negative Cardiac Disorders or Congestive Heart Failure RESPIRATORY: Negative Chronic Obstructive Pulmonary Disease (COPD) or Asthma GENITOURINARY: Negative Renal Disease ENT: Positive Cataracts ENDOCRINE: Positive Hyperthyroidism; Negative Diabetes Mellitus Type 1 or Diabetes Mellitus Type 2 HEMATOLOGIC: Negative Sickle Cell Disease PSYCHO/SOCIAL: Positive Recreational Drug Use (meth) Social History SMOKING STATUS: Current every day smoker ED Exam General Limitations: Present no limitations General appearance: Present alert and in no apparent distress Head Head exam: Present atraumatic Eye Eye exam: Present normal appearance, PERRL and EOMI ENT ENT exam: Present normal exam, normal oropharynx and mucous membranes moist Neck Neck exam: Present normal inspection, full ROM and trachea midline Chest Chest inspection: Present normal inspection and symmetric chest wall rise Respiratory Respiratory exam: Present normal lung sounds bilaterally Cardiovascular Cardiovascular exam: Present regular rate, normal rhythm and normal heart sounds Abdominal Exam Abdominal exam: Present soft and normal bowel sounds Extremities Exam Extremities exam: Present normal inspection and full ROM Back Exam Back exam: Present normal inspection and full ROM Neurological Exam Neurological exam: Present alert, oriented X3 and CN II-XII intact Psychiatric Psychiatric exam: Present normal affect and normal mood Skin Skin exam: Present warm, dry, intact and normal color Course Quality Measures none Orders Category Date Time Status XR chest 2V Stat Exams 06/01/24 06:23 Completed CBC Stat Lab 06/01/24 06:47 Completed Comprehensive Metabolic Panel Stat Lab 06/01/24 06:47 Completed Drug Screen,Urine Stat Lab 06/01/24 06:30 Completed Lipase Stat Lab 06/01/24 06:47 Completed Troponin I Stat Lab 06/01/24 06:47 Completed UA, C/S IF [Urinalysis, C/S if Indicated] Stat Lab 06/01/24 06:30 Completed Urine Culture Stat Lab 06/01/24 06:30 Received Ibuprofen Tab [Motrin Tab] Med 06/01/24 06:24 Discontinued 600 mg PO X1 ONE Lidocaine 1% 20 ml [Xylocaine 1% 20 ML] Med 06/01/24 08:01 Discontinued 2.1 ml INFL X1 ONE Metoclopramide [Reglan] Med 06/01/24 06:24 Discontinued 10 mg PO X1 ONE cefTRIAXone [Rocephin] Med 06/01/24 08:01 Discontinued 1,000 mg IM X1 ONE Vital Signs Vital signs: Vital Signs Temperature 97.5 F 06/01/24 08:05 Pulse Rate 78 06/01/24 08:05 Respiratory Rate 18 06/01/24 08:05 Blood Pressure 152/89 H 06/01/24 08:05 Pulse Oximetry (%) 98 06/01/24 08:05 Oxygen Delivery Method Room Air 06/01/24 08:05 O2 saturation 98% room air within normal limits Discharge Plan Plan Patient Disposition: HOME (Self Care) Disposition Comment: Stable Prescriptions/Referrals Prescriptions/Med Rec: New ciprofloxacin HCl 500 mg tablet 500 mg PO BID 7 Days Qty: 14 0RF ibuprofen 600 mg tablet 600 mg PO Q6H Qty: 30 0RF No Action pantoprazole [Protonix] 40 mg tablet,delayed release (DR/EC) 40 mg PO QDAY Qty: 14 0RF Referrals: No Primary/Family,Physician [Primary Care Provider] - In 1 week Problem List Clinical Impression: Methamphetamine abuse, Delusions of parasitosis, UTI (urinary tract infection) Patient/Caregiver Discharge Instructions Education Materials: When to Use Antibiotics Additional Instructions: Please follow up with your primary care doctor in the next 24-48hrs for any worsening symptoms return here immediately Please refrain from drug abuse that can kill you Please take all antibiotics as prescribed Print Language: Korean Stand Alone Forms: [employer]mm[employer] Award Info., Patient Portal Info Letter PA/MENG Supervising Physician PA/MENG Supervising Physician: Dr. jones [facility] Patient Acuity Narrative: 68-year-old male with history of methamphetamine abuse who uses methamphetamine regularly presents emerged from today for complaints of generalized body aches as well as concerns for bugs coming out of his legs On exam patient well-appearing patient does not appear ill or toxic and in no acute distress Patient is hemodynamically stable Lab work obtained no acute emergent findings noted patient does have what appears to be UTI Patient tested positive for methamphetamine consistent with patient's psychiatric symptoms Patient discharged home in no distress to follow-up with primary care doctor in the next 24 to 48 hours and for any worsening symptoms to return to the ER immediately Clinical Information Provided by: patient Medical Records reviewed [facility] Meds/Rx considered, not ordered None Labs/Rad/Tests considered, not ordered None Chronic Illness/Social Conditions which may negatively complicate care or outcome(s)-explain: Homeless and ETOH/drugs/substance abuse EKG EKG Interpretation(s): N/A Labs Labs: Interpreted by me Imaging Imaging interpretation: Interpreted by me Medication Administration(s) Medication Administration History Discontinued Medications Ceftriaxone Sodium (Ceftriaxone Sod Inj 1,000 Mg Vial) 1,000 mg IM X1 ONE Stop: 06/01/24 08:02 Ibuprofen (Ibuprofen Tab 600 Mg Tablet) 600 mg PO X1 ONE Stop: 06/01/24 06:25 Last Admin: 06/01/24 06:46 Dose: 600 mg Documented By: CVL Lidocaine HCl (Lidocaine Hcl 1% 20 Ml Vial) 2.1 ml INFL X1 ONE Stop: 06/01/24 08:02 Metoclopramide HCl (Metoclopramide 5 Mg Tablet) 10 mg PO X1 ONE Stop: 06/01/24 06:25 Last Admin: 06/01/24 06:47 Dose: 10 mg Documented By: CVL Given Diagnosis Differential Diagnosis ED Complaint MDM: UTI, URI, viral illness, psychiatric disorder, methamphetamine use
[2024-06-01 08:05] VITALS: BP 152/89; PULSE 78; RESP 18; TEMP 36.4; O2SAT 98
== END 2024-06-01 08:22 | disposition home or self-care (01) ==
PROVIDERS: Nurse Practitioner Primary Care; Emergency Provider Family Medicine
DX: F15.10 Other stimulant abuse, uncomplicated (principal); F22 Delusional disorders; N39.0 Urinary tract infection, site not specified
CPT/HCPCS: 36415; 71046; 80053; 80307; 81001; 83690; 84484; 85025; 87077; 87086; 87186; 99283; A9270

== ENCOUNTER 2024-08-04 23:11 | Emergency (ER) | payer MEDICARE, MEDICAID, SELFPAY ==
[2024-08-04 23:26] VITALS: BP 128/80; BP 134/75; PULSE 61; PULSE 69; RESP 17; RESP 19; TEMP 36.7; O2SAT 93; O2SAT 95
[2024-08-04 23:30] VITALS: PULSE 68; RESP 18; O2SAT 97
[2024-08-05] VITALS (9 sets, daily range): BP systolic 111–158; BP diastolic 69–93; PULSE 45–57; RESP 12–38; TEMP 36.6–37.3; O2SAT 94–98; BMI 24.5; BMI 12.0
[2024-08-05 02:23] LABS: Basophils # (Auto) 0.1 Thou/mm3 (0.0-0.2); Basophils % (Auto) 1 % (0-2.5); Eosinophils # (Auto) 0.2 Thou/mm3 (0.0-0.5); Eosinophils % (Auto) 3 % (0-10); Hematocrit 35.8 % (41.0-53.0); Hemoglobin 12.7 g/dL (13.5-16.0); Immature Granulocytes % (Auto) 0 % (0-0); Immature Granulocytes Auto 0.01 Thou/mm3 (0.00-0.00); Lymphocytes # (Auto) 1.7 Thou/mm3 (1.0-4.8); Lymphocytes % (Auto) 26 % (10-50); Mean Corpuscular HGB Conc 35.5 g/dl (31.0-37.0); Mean Corpuscular Volume 87 fL (80-100); Monocytes # (Auto) 0.8 Thou/mm3 (0.0-0.8); Monocytes % (Auto) 12 % (0-12); Neutrophils # (Auto) 3.7 Thou/mm3 (1.8-7.7); Neutrophils % (Auto) 57 % (37-80); Nucleated Red Blood Cell % 0 /100 WBC (0); Platelet Count 240 Thou/mm3 (140-440); RDW Standard Deviation 45.7 fL (35.1-43.9); White Blood Count 6.4 Thou/mm3 (3.8-10.6)
[2024-08-05] MEDS: SODIUM CHLORIDE 0.9% 1000 ML 1,000 ML 999 ML IV (02:39)
[2024-08-05 02:50] LABS: Alanine Aminotransferase 15 U/L (10-49); Albumin, Serum 3.9 gm/dL (3.4-4.8); Albumin/Globulin Ratio 1.8 (1.2-2.2); Alcohol, Blood Medical < 3.0 mg/dL (0-10.0); Alkaline Phosphatase 86 U/L (46-116); Anion Gap 6 (7-16); Aspartate Amino Transferase 23 U/L (0-34); BUN/Creatinine Ratio 20 Ratio (12-20); Bilirubin,Total 0.4 mg/dL (0.3-1.2); Blood Urea Nitrogen 16 mg/dL (9-23); Calcium 8.8 mg/dL (8.3-10.6); Calcium (Corrected) 8.9 mg/dL (8.5-10.1); Carbon Dioxide 29.4 mMol/L (20.0-31.0); Chloride 104 mMol/L (98-107); Creatinine (Component) 0.8 mg/dL (0.6-1.3); Estimated Creatinine Clearance 87.1 mL/min (>60); Globulin 2.2 gm/dL (2.3-3.5); Glucose 88 mg/dL (74-106); Osmolality,Calculated 277 (275-295); Potassium 4.1 mMol/L (3.4-5.1); Sodium 139 mMol/L (136-145); Total Protein 6.1 gm/dL (5.7-8.2); Troponin I < 0.020 ng/mL (0.0-0.045); eGFR > 60 See Note
--- NOTE | 2024-08-05 04:06 | XR_ITS ---
Examination: Breast ultrasound limited, left complete Date and time of exam: August 05, 2024 0528 hours INDICATIONS: Painful left breast retroareolar lump noticed beginning 3 weeks ago Technique: Real time darling scale ultrasonographic imaging of the breast , retroarelar and axillary region. Findings: Sonographic images left breast Retroareolar mass with spiculated margins, 2.2 x 0.9 x 2.5 cm IMPRESSION: BI-RADS Category 4: Suspicious for malignancy. Suspicious retroareolar mass left breast, biopsy is needed to exclude breast carcinoma,, the mass is amenable to ultrasound-guided breast biopsy also diagnostic mammography follow-up is needed
--- NOTE | 2024-08-05 04:07 | PD.EDCHEST ---
ED Chest Pain RME/HPI General Chief Complaint: Chest Pain Stated Complaint: CHEST PAIN Arrival date/time: 08/04/24 23:11 RME / HPI RME / HPI narrative: 68 y/o male with Hx of Methamphetamine use presents to ED c/o BL ear pain and sore throat. In addition, patient also complains of chest swelling with black stuff coming out of it. Patient states bugs are coming out of his eyes causing his eyes to turn red. No other concerns or complaints expressed at this time. Related Data Previous Rx's ?Medication ?Instructions ?Recorded pantoprazole 40 mg tablet,delayed 40 mg PO QDAY #14 tabs 09/14/23 release (Protonix) ibuprofen 600 mg tablet 600 mg PO Q6H #30 tabs 06/01/24 Allergies Allergy/AdvReac Type Severity Reaction Status Date / Time codeine Allergy Severe Vomiting Verified 08/04/24 23:29 diphenhydramine Allergy Severe Nausea Verified 08/04/24 23:29 Review of Systems Review of Systems Systems Reviewed: All systems reviewed, normal except as documented Past Medical History Past Medical History ENT: Positive Cataracts ENDOCRINE: Positive Hyperthyroidism PSYCHO/SOCIAL: Positive Recreational Drug Use (meth) Social History SMOKING STATUS: Current every day smoker ED Exam Narrative Physical exam: GENERAL APPEARANCE: alert and oriented x 4, well-developed, well-nourished, no acute distress VITALS: All vitals were reviewed and the pulse ox is 98% on room air, which is normal according to my interpretation. HEENT: Normocephalic, atraumatic; pupils equal, round, reactive to light; EOMI; mucous membranes pink, moist; oropharynx clear NECK: Supple LUNGS: CTABL; no wheezes, no rales, no rhonchi HEART: Regular rate, regular rhythm; normal S1, S2; no murmurs CHEST: Lumps in the left breast, no axillary lymphadenopathy ABDOMEN: non distended; normal BS; soft, no tenderness, no guarding, no rebound; no masses, no organomegaly, no hernia BACK: no CVA tenderness EXTREMITIES: atraumatic; no edema NEUROLOGIC: awake; alert and oriented x4; cranial nerves II-XII grossly intact; no focal sensory or motor deficits PSYCHIATRIC: appropriate mood and affect SKIN: warm, dry, normal color; no rashes Course Course Course Narrative: CXR is ordered for determining the etiology of shortness of breath. Quality Measures none Orders Category Date Time Status EKG (ED ONLY) *Do not use* NOW Care 08/05/24 02:23 Completed EKG (ED Only) Stat Exams 08/05/24 02:22 Ordered US breast LT limited Stat Exams 08/05/24 04:06 Taken Alcohol, Blood Medical Stat Lab 08/05/24 02:10 Completed CBC Stat Lab 08/05/24 02:10 Completed CMP [Comprehensive Metabolic Panel] Stat Lab 08/05/24 02:10 Completed Drug Screen,Urine Stat Lab 08/05/24 04:05 Completed Troponin I Stat Lab 08/05/24 02:10 Completed Urinalysis, C/S if Indicated Stat Lab 08/05/24 04:05 Completed Urine Culture Stat Lab 08/05/24 04:05 Received Sodium Chloride 0.9% 1000 ml [Ns] 1,000 ml Med 08/05/24 02:36 Discontinued IV 999 mls/hr Sodium Chloride 0.9% 1000 ml [Ns] 2,000 ml Med 08/05/24 02:29 Discontinued IV 999 mls/hr Vital Signs Vital signs: Vital Signs Temperature 98.0 F 08/04/24 23:26 Pulse Rate 61 08/04/24 23:26 Respiratory Rate 17 08/04/24 23:26 Blood Pressure 128/80 08/04/24 23:26 Pulse Oximetry (%) 95 08/04/24 23:26 Oxygen Delivery Method Room Air 08/04/24 23:26 Chest Pain MDM Narrative MDM Narrative:: Scribe Attestation: IElizabeth, am scribing for and in the presence of Dr. Hoang. Provider Notation: Although this document has been carefully reviewed, there may still be some phonetic and other typographical errors.? These errors are purely grammatical due to imperfections in the software program and should not be construed in any way to? compromise the substance of the patient's medical care during this visit. 0600: Care signed out to [facility] day shift provider. Past medical, surgical, social and family history reviewed. Vitals and home medications reviewed. Results and treatment plan discussed. They will assume the care of the patient at this time and will follow the patient, pending labs, US, and final disposition. Patient data External records reviewed:: [facility] previous records (Reviewed prior ED records from 06/01/24. Patient was seen for Delusions of parasitosis.) Clinical information provided by:: patient Social determinants that could affect healthcare access:: substance use (Methamphetamine) Patient has the following chronic illnesses:: Recreational drug use, How is presenting disease/condition affected by chronic disease/condition?: exacerbated by Evaluation data The following diagnostics were reviewed and interpreted by me:: lab results, radiology exam(s) and EKG tracing(s) (EKG manual reading, my interpretation: sinus rhythm, rate: 56 bpm, T-wave inversion at V1, no acute ischemic changes, interpreted as normal.) Lab and/or radiology exams considered but not ordered:: None Interpretation Summary: RADIOLOGY Left Breast US: Pending official radiology report. Medications / Prescriptions Medications or Prescriptions considered but not ordered:: None Medication administrations:: Medication Administration History Discontinued Medications Sodium Chloride (Ns) 2,000 mls @ 999 mls/hr IV .Q2H1M ONE Stop: 08/05/24 04:29 Last Admin: 08/05/24 02:39 Dose: Not Given Documented By: PRAVEENA Non-Admin Reason: Discontinued Sodium Chloride (Ns) 1,000 mls @ 999 mls/hr IV .Q1H1M ONE Stop: 08/05/24 03:36 Last Infusion: 08/05/24 03:47 Dose: Infused Documented By: Admin: 08/05/24 02:39 Dose: 999 mls/hr Documented By: PRAVEENA See above if any Consultations Consultation(s) initiated? (list below): No Diagnosis Chest Pain Differential Diagnosis: fracture of rib, pneumothorax, stable angina, atypical chest pain, costochondritis, chest pain and other (Cellulitis, Abscess) Most likely diagnosis given after review of the tests above:: Chest wall pain, Delusions of parasitosis Admission Indicated Admission indicated?: not indicated Explain why admission is indicated or not indicated:: Pending US. Admission Request Was there a request for admission?: No Disposition Plan Disposition Plan: other (specify) (Sign-out to oncoming ED physician at 6 AM.) Discharge Plan Prescriptions/Referrals Prescriptions/Med Rec: No Action ibuprofen 600 mg tablet 600 mg PO Q6H Qty: 30 0RF pantoprazole [Protonix] 40 mg tablet,delayed release (DR/EC) 40 mg PO QDAY Qty: 14 0RF Referrals: No Primary/Family,Physician [Primary Care Provider] - In 1 week Problem List Clinical Impression: Delusions of parasitosis, Chest wall pain Patient/Caregiver Discharge Instructions Print Language: Malagasy
[2024-08-05 04:13] LABS: Collection Type, Urine Voided
[2024-08-05 04:19] LABS: Bacteria,Urine Rare; Bilirubin,Urine Negative (Negative); Blood,Urine Negative (Negative); Clarity,Urine Clear (Clear/Hazy); Color,Urine Lt-Yellow (Lt Yel-Yel); Glucose, Urine Negative (Negative); Ketones,Urine Negative (Negative); Leukocyte Esterase,Urine Positive (Negative); Nitrite,Urine Positive (Negative); PH,Urine 6.5 (5.0-7.0); Protein,Urine Negative (Neg - Trace); RBC,Urine 1 /hpf (0-3); Specific Gravity,Urine 1.016 (1.001-1.035); Squamous Epithelial Cell,Urine < 1 /hpf (0-5); Urobilinogen,Urine Negative mg/dL (0.0-1.0); WBC,Urine 8 /hpf (0-5)
[2024-08-05 04:25] LABS: Amphetamine/Methamp Scrn,U Positive (Negative); Barbiturate Screen,Urine Negative (Negative); Benzodiazepines Screen,Urine Negative (Negative); Benzoylecgonine Screen, Ur Negative (Negative); Culture Indicated,Urine Yes; Fentanyl Screen,Urine Negative (Negative); Opiate Screen,Urine Negative (Negative); THC Screen,Urine Negative (Negative)
--- NOTE | 2024-08-05 05:09 | PC.NURSE ---
pt asleep since arival. nop complaints of chest pain. pt arouses easily and is calm and cooperative.
--- NOTE | 2024-08-05 06:04 | PRELIM_ITS ---
Left breast ultrasound. August 05, 2024 0528 hours Clinical history: mass, tenderness Comparison: No prior study is available for comparison. Findings: There is a 2.2x0.9x2.5 cm hypoechoic , irregular and spiculated mass in the retroareolar region Impression: Retroareolar irregular spiculated mass which may represent gynecomastia Recommend further evaluation. DISCLAIMER: Neoplasms may be obscured by fibrocystic changes or dense breast tissue and can occasionally be undetectable even in fatty breasts. A negative report should not deter biopsy if a clinically suspicious mass is present. If a patient falls within a Janice Risk Assessment Category greater than 15%, MRI may be indicated. Correlate the clinical and family history recommendation via the primary care physician. Report Electronically Signed By: Vannesa Eisenberg 08/05/2024 6:03:45 AM [EST]
--- NOTE | 2024-08-05 07:06 | EDNOTE_ITS ---
Emergency Room Addendum <Ame Powers - Last Filed: 08/05/24 17:34> Addendum Narrative: 0600: Care assumed from Dr. Hoang, the previous shift emergency physician. Past medical, surgical, social and family history reviewed. Vitals and home medications reviewed. I will assume the care of the patient at this time, pending diagnostic tests and final disposition. Please refer to the emergency department record for history and examination from initial visit.? Physical exam by me shows patient under no acute distress at this time. Patient has a left breast mass. Upon palpation i do not feel any mass, this might be an infection. Plan to give antibiotics for 10 days and then repeat US and if mass is still there then a biopsy can be done. No need for admission. If patient can walk they will be discharged. If not then we might need to place them in a SNF. Physical therapy, saw the patient He was unable to walk due to pain Will order CT of the L-spine and T-spine to rule out compression fracture and spinal stenosis Will order Toradol dexamethasone tramadol and baclofen After that physical therapist will come back again in 2 hours to recheck the patient If patient still unable to walk then we can admit him for pain control 1326: Patient cannot walk. He has spinal stenosis. Plan to admit. Patient will be admitted for lumbar spine stenosis and lumbar pain. Admitted for pain control. Hospitalist recommend placing the patient instead of admitting. 1702: [facility] <Brian Bonilla MD - Last Filed: 08/05/24 11:15> Addendum Narrative: 0600: Care assumed from Dr. Hoang, the previous shift emergency physician. Past medical, surgical, social and family history reviewed. Vitals and home medications reviewed. I will assume the care of the patient at this time, pending diagnostic tests and final disposition. Please refer to the emergency department record for history and examination from initial visit.? Physical exam by me shows patient under no acute distress at this time. Patient has a left breast mass. Upon palpation i do not feel any mass, this might be an infection. Plan to give antiobiotis for 10 days and then repeat US and if mass is still there then a biopsy can be done. No need for admission. If patient can walk they will be discharged. If not then we might need to place them in a SNF. Physical therapy, saw the patient He was unable to walk due to pain Will order CT of the L-spine and T-spine to rule out compression fracture and spinal stenosis Will order Toradol dexamethasone tramadol and baclofen After that physical therapist will come back again in 2 hours to recheck the patient If patient still unable to walk then we can admit him for pain control Results <Ame Powers - Last Filed: 08/05/24 17:34> Objective Laboratory: Laboratory Last Values WBC 6.4 Thou/mm3 (3.8-10.6) 08/05/24 02:10 RBC 4.10 Miln/mm3 (4.50-5.90) L 08/05/24 02:10 Hgb 12.7 g/dL (13.5-16.0) L 08/05/24 02:10 Hct 35.8 % (41.0-53.0) L 08/05/24 02:10 MCV 87 fL (80-100) 08/05/24 02:10 MCH 31.0 pg (25.0-35.0) 08/05/24 02:10 MCHC 35.5 g/dl (31.0-37.0) 08/05/24 02:10 RDW Std Deviation 45.7 fL (35.1-43.9) H 08/05/24 02:10 Plt Count 240 Thou/mm3 (140-440) 08/05/24 02:10 Neut % (Auto) 57 % (37-80) 08/05/24 02:10 Lymph % (Auto) 26 % (10-50) 08/05/24 02:10 [place] % (Auto) 12 % (0-12) 08/05/24 02:10 Eos % (Auto) 3 % (0-10) 08/05/24 02:10 Baso % (Auto) 1 % (0-2.5) 08/05/24 02:10 Neut # (Auto) 3.7 Thou/mm3 (1.8-7.7) 08/05/24 02:10 Lymph # (Auto) 1.7 Thou/mm3 (1.0-4.8) 08/05/24 02:10 [place] # (Auto) 0.8 Thou/mm3 (0.0-0.8) 08/05/24 02:10 Eos # (Auto) 0.2 Thou/mm3 (0.0-0.5) 08/05/24 02:10 Baso # (Auto) 0.1 Thou/mm3 (0.0-0.2) 08/05/24 02:10 Immature Gran # (Auto) 0.01 Thou/mm3 (0.00-0.00) H 08/05/24 02:10 Absolute Nucleated RBC 0.00 Thou/mm3 (0.00-0.00) 08/05/24 02:10 Immature Gran % 0 % (0-0) 08/05/24 02:10 Nucleated RBC % 0 /100 WBC (0) 08/05/24 02:10 Sodium 139 mMol/L (136-145) 08/05/24 02:10 Potassium 4.1 mMol/L (3.4-5.1) 08/05/24 02:10 Chloride 104 mMol/L (98-107) 08/05/24 02:10 Carbon Dioxide 29.4 mMol/L (20.0-31.0) 08/05/24 02:10 Anion Gap 6 (7-16) L 08/05/24 02:10 BUN 16 mg/dL (9-23) 08/05/24 02:10 Creatinine 0.8 mg/dL (0.6-1.3) 08/05/24 02:10 Estim Creat Clear Calc 87.1 mL/min (>60) 08/05/24 02:10 eGFR > 60 See Note (60-) 08/05/24 02:10 BUN/Creatinine Ratio 20 Ratio (12-20) 08/05/24 02:10 Glucose 88 mg/dL (74-106) 08/05/24 02:10 Calculated Osmolality 277 (275-295) 08/05/24 02:10 Calcium 8.8 mg/dL (8.3-10.6) 08/05/24 02:10 Corrected Calcium 8.9 mg/dL (8.5-10.1) 08/05/24 02:10 Total Bilirubin 0.4 mg/dL (0.3-1.2) 08/05/24 02:10 AST 23 U/L (0-34) 08/05/24 02:10 ALT 15 U/L (10-49) 08/05/24 02:10 Alkaline Phosphatase 86 U/L (46-116) 08/05/24 02:10 Troponin I < 0.020 ng/mL (0.0-0.045) 08/05/24 02:10 Total Protein 6.1 gm/dL (5.7-8.2) 08/05/24 02:10 Albumin 3.9 gm/dL (3.4-4.8) 08/05/24 02:10 Globulin 2.2 gm/dL (2.3-3.5) L 08/05/24 02:10 Albumin/Globulin Ratio 1.8 (1.2-2.2) 08/05/24 02:10 Ur Collection Type Voided 08/05/24 04:05 Urine Color Lt-Yellow (Lt Yel-Yel) 08/05/24 04:05 Urine Clarity Clear (Clear/Hazy) 08/05/24 04:05 Urine pH 6.5 (5.0-7.0) 08/05/24 04:05 Ur Specific [place] 1.016 (1.001-1.035) 08/05/24 04:05 Urine Protein Negative (Neg - Trace) 08/05/24 04:05 Urine Glucose (UA) Negative (Negative) 08/05/24 04:05 Urine Ketones Negative (Negative) 08/05/24 04:05 Urine Blood Negative (Negative) 08/05/24 04:05 Urine Nitrite Positive (Negative) 08/05/24 04:05 Urine Bilirubin Negative (Negative) 08/05/24 04:05 Urine Urobilinogen (Auto) Negative mg/dL (0.0-1.0) 08/05/24 04:05 Ur Leukocyte Esterase Positive (Negative) 08/05/24 04:05 Urine RBC 1 /hpf (0-3) 08/05/24 04:05 Urine WBC 8 /hpf (0-5) H 08/05/24 04:05 Ur Squamous Epith Cells < 1 /hpf (0-5) 08/05/24 04:05 Urine Bacteria Rare (None) 08/05/24 04:05 Ur Culture Indicated? Yes 08/05/24 04:05 Urine Opiates Screen Negative (Negative) 08/05/24 04:05 Urine Fentanyl Screen Negative (Negative) 08/05/24 04:05 Ur Barbiturates Screen Negative (Negative) 08/05/24 04:05 U Amphetamin/Meth Scrn Positive (Negative) A 08/05/24 04:05 U Benzodiazepines Scrn Negative (Negative) 08/05/24 04:05 U Cocaine Metab Screen Negative (Negative) 08/05/24 04:05 U Marijuana (THC) Screen Negative (Negative) 08/05/24 04:05 Ethyl Alcohol < 3.0 mg/dL (0-10.0) 08/05/24 02:10 Imaging: Procedure(s): US breast LT limited Accession Number(s): [id number] cc: Eugene Brown MD; NO PRIMARY/FAMILY,PHYSICIAN; Liz Hoang MD~ Examination: Breast ultrasound limited, left complete Date and time of exam: August 05, 2024 0528 hours INDICATIONS: Painful left breast retroareolar lump noticed beginning 3 weeks ago Technique: Real time darling scale ultrasonographic imaging of the breast , retroarelar and axillary region. Findings: Sonographic images left breast Retroareolar mass with spiculated margins, 2.2 x 0.9 x 2.5 cm IMPRESSION: BI-RADS Category 4: Suspicious for malignancy. Suspicious retroareolar mass left breast, biopsy is needed to exclude breast carcinoma,, the mass is amenable to ultrasound-guided breast biopsy also diagnostic mammography follow-up is needed Dictated By: Eugene Brown MD Procedure(s): CT lumbar spine wo con Accession Number(s): [id number] cc: Brian Bonilla MD; Eugene Brown MD; NO PRIMARY/FAMILY,PHYSICIAN~ Examination: CT lumbar spine, without contrast. 2-D sagittal reconstructions. 2-D coronal reconstructions. 3-D reconstructions. Date and time of exam:August 05, 2024 1141 hours INDICATIONS: Onset lower back pain beginning 2 weeks ago CTDI: vol (mGy):17.7 DLP: (mGycm):597 Technique: Multiple 1.25 mm axial sections of the lumbar spine without intravenous contrast have been obtained. 2-D sagittal and coronal reconstructions have been obtained. 3-D reconstructions have been obtained. Low dose protocols were performed. One or more of the following dose reduction techniques were used; automated exposure control, adjustment of the mA and/or KV according to patient size, use of iterative reconstruction technique. Findings: Adequate alignment lumbar vertebral bodies No lumbar fracture No spondylolisthesis Mild lumbar spondylosis Lumbar pedicles, laminae, transverse and posterior spinous processes intact L5-S1 4 mm central lumbar disc bulge contiguous with the right and left S1 nerve roots L4-L5 severe overall spinal stenosis, axial image 36, 6 mm central lumbar disc bulge, facet arthropathy and thickening of ligamentum flavum circumferentially narrowing the thecal sac and producing mild right L4 ganglionic compression L3-L4 2 mm central lumbar disc bulge L2-L3 no disc protrusion L1-L2 no disc protrusion IMPRESSION: No lumbar fracture L5-S1 4 mm central lumbar disc bulge contiguous with the right and left S1 nerve roots L4-L5 severe overall spinal stenosis including mild right L4 ganglionic compression Dictated By: Eugene Brown MD Procedure(s): CT thoracic spine wo [facility] Accession Number(s): [id number] cc: Brian Bonilla MD; Eugene Brown MD; NO PRIMARY/FAMILY,PHYSICIAN~ Examination: CT thoracic spine, without contrast. 2-D sagittal reconstructions. 2-D coronal reconstructions. 3-D reconstructions. Date and time of exam:August 05, 2024 at 1141 hours INDICATIONS: Onset mid back pain beginning 2 weeks ago CTDI: vol (mGy):24.5 DLP: (mGycm):900 Technique: Multiple 1.25 mm axial sections of the thoracic spine without intravenous contrast have been obtained. 2-D sagittal and coronal reconstructions have been obtained. 3-D reconstructions have been obtained. Low dose protocols were performed. One or more of the following dose reduction techniques were used; automated exposure control, adjustment of the mA and/or KV according to patient size, use of iterative reconstruction technique. Findings: Prominent osteopenia No acute thoracic fracture Satisfactory alignment thoracic vertebral bodies Thoracic pedicles laminae transverse and posterior spinous processes are intact No focal soft tissue disc protrusion IMPRESSION: No acute thoracic fracture No focal thoracic disc protrusion Dictated By: Eugene Brown MD <Brian Bonilla MD - Last Filed: 08/05/24 11:15> Objective Laboratory: Laboratory Last Values WBC 6.4 Thou/mm3 (3.8-10.6) 08/05/24 02:10 RBC 4.10 Miln/mm3 (4.50-5.90) L 08/05/24 02:10 Hgb 12.7 g/dL (13.5-16.0) L 08/05/24 02:10 Hct 35.8 % (41.0-53.0) L 08/05/24 02:10 MCV 87 fL (80-100) 08/05/24 02:10 MCH 31.0 pg (25.0-35.0) 08/05/24 02:10 MCHC 35.5 g/dl (31.0-37.0) 08/05/24 02:10 RDW Std Deviation 45.7 fL (35.1-43.9) H 08/05/24 02:10 Plt Count 240 Thou/mm3 (140-440) 08/05/24 02:10 Neut % (Auto) 57 % (37-80) 08/05/24 02:10 Lymph % (Auto) 26 % (10-50) 08/05/24 02:10 [place] % (Auto) 12 % (0-12) 08/05/24 02:10 Eos % (Auto) 3 % (0-10) 08/05/24 02:10 Baso % (Auto) 1 % (0-2.5) 08/05/24 02:10 Neut # (Auto) 3.7 Thou/mm3 (1.8-7.7) 08/05/24 02:10 Lymph # (Auto) 1.7 Thou/mm3 (1.0-4.8) 08/05/24 02:10 [place] # (Auto) 0.8 Thou/mm3 (0.0-0.8) 08/05/24 02:10 Eos # (Auto) 0.2 Thou/mm3 (0.0-0.5) 08/05/24 02:10 Baso # (Auto) 0.1 Thou/mm3 (0.0-0.2) 08/05/24 02:10 Immature Gran # (Auto) 0.01 Thou/mm3 (0.00-0.00) H 08/05/24 02:10 Absolute Nucleated RBC 0.00 Thou/mm3 (0.00-0.00) 08/05/24 02:10 Immature Gran % 0 % (0-0) 08/05/24 02:10 Nucleated RBC % 0 /100 WBC (0) 08/05/24 02:10 Sodium 139 mMol/L (136-145) 08/05/24 02:10 Potassium 4.1 mMol/L (3.4-5.1) 08/05/24 02:10 Chloride 104 mMol/L (98-107) 08/05/24 02:10 Carbon Dioxide 29.4 mMol/L (20.0-31.0) 08/05/24 02:10 Anion Gap 6 (7-16) L 08/05/24 02:10 BUN 16 mg/dL (9-23) 08/05/24 02:10 Creatinine 0.8 mg/dL (0.6-1.3) 08/05/24 02:10 Estim Creat Clear Calc 87.1 mL/min (>60) 08/05/24 02:10 eGFR > 60 See Note (60-) 08/05/24 02:10 BUN/Creatinine Ratio 20 Ratio (12-20) 08/05/24 02:10 Glucose 88 mg/dL (74-106) 08/05/24 02:10 Calculated Osmolality 277 (275-295) 08/05/24 02:10 Calcium 8.8 mg/dL (8.3-10.6) 08/05/24 02:10 Corrected Calcium 8.9 mg/dL (8.5-10.1) 08/05/24 02:10 Total Bilirubin 0.4 mg/dL (0.3-1.2) 08/05/24 02:10 AST 23 U/L (0-34) 08/05/24 02:10 ALT 15 U/L (10-49) 08/05/24 02:10 Alkaline Phosphatase 86 U/L (46-116) 08/05/24 02:10 Troponin I < 0.020 ng/mL (0.0-0.045) 08/05/24 02:10 Total Protein 6.1 gm/dL (5.7-8.2) 08/05/24 02:10 Albumin 3.9 gm/dL (3.4-4.8) 08/05/24 02:10 Globulin 2.2 gm/dL (2.3-3.5) L 08/05/24 02:10 Albumin/Globulin Ratio 1.8 (1.2-2.2) 08/05/24 02:10 Ur Collection Type Voided 08/05/24 04:05 Urine Color Lt-Yellow (Lt Yel-Yel) 08/05/24 04:05 Urine Clarity Clear (Clear/Hazy) 08/05/24 04:05 Urine pH 6.5 (5.0-7.0) 08/05/24 04:05 Ur Specific [place] 1.016 (1.001-1.035) 08/05/24 04:05 Urine Protein Negative (Neg - Trace) 08/05/24 04:05 Urine Glucose (UA) Negative (Negative) 08/05/24 04:05 Urine Ketones Negative (Negative) 08/05/24 04:05 Urine Blood Negative (Negative) 08/05/24 04:05 Urine Nitrite Positive (Negative) 08/05/24 04:05 Urine Bilirubin Negative (Negative) 08/05/24 04:05 Urine Urobilinogen (Auto) Negative mg/dL (0.0-1.0) 08/05/24 04:05 Ur Leukocyte Esterase Positive (Negative) 08/05/24 04:05 Urine RBC 1 /hpf (0-3) 08/05/24 04:05 Urine WBC 8 /hpf (0-5) H 08/05/24 04:05 Ur Squamous Epith Cells < 1 /hpf (0-5) 08/05/24 04:05 Urine Bacteria Rare (None) 08/05/24 04:05 Ur Culture Indicated? Yes 08/05/24 04:05 Urine Opiates Screen Negative (Negative) 08/05/24 04:05 Urine Fentanyl Screen Negative (Negative) 08/05/24 04:05 Ur Barbiturates Screen Negative (Negative) 08/05/24 04:05 U Amphetamin/Meth Scrn Positive (Negative) A 08/05/24 04:05 U Benzodiazepines Scrn Negative (Negative) 08/05/24 04:05 U Cocaine Metab Screen Negative (Negative) 08/05/24 04:05 U Marijuana (THC) Screen Negative (Negative) 08/05/24 04:05 Ethyl Alcohol < 3.0 mg/dL (0-10.0) 08/05/24 02:10
[2024-08-05] MEDS: LEVOFLOXACIN 250 MG TABLET 500 MG PO (10:40)
--- NOTE | 2024-08-05 11:12 | XR_ITS ---
Examination: CT lumbar spine, without contrast. 2-D sagittal reconstructions. 2-D coronal reconstructions. 3-D reconstructions. Date and time of exam:August 05, 2024 1141 hours INDICATIONS: Onset lower back pain beginning 2 weeks ago CTDI: vol (mGy):17.7 DLP: (mGycm):597 Technique: Multiple 1.25 mm axial sections of the lumbar spine without intravenous contrast have been obtained. 2-D sagittal and coronal reconstructions have been obtained. 3-D reconstructions have been obtained. Low dose protocols were performed. One or more of the following dose reduction techniques were used; automated exposure control, adjustment of the mA and/or KV according to patient size, use of iterative reconstruction technique. Findings: Adequate alignment lumbar vertebral bodies No lumbar fracture No spondylolisthesis Mild lumbar spondylosis Lumbar pedicles, laminae, transverse and posterior spinous processes intact L5-S1 4 mm central lumbar disc bulge contiguous with the right and left S1 nerve roots L4-L5 severe overall spinal stenosis, axial image 36, 6 mm central lumbar disc bulge, facet arthropathy and thickening of ligamentum flavum circumferentially narrowing the thecal sac and producing mild right L4 ganglionic compression L3-L4 2 mm central lumbar disc bulge L2-L3 no disc protrusion L1-L2 no disc protrusion IMPRESSION: No lumbar fracture L5-S1 4 mm central lumbar disc bulge contiguous with the right and left S1 nerve roots L4-L5 severe overall spinal stenosis including mild right L4 ganglionic compression
--- NOTE | 2024-08-05 11:12 | XR_ITS ---
Examination: CT thoracic spine, without contrast. 2-D sagittal reconstructions. 2-D coronal reconstructions. 3-D reconstructions. Date and time of exam:August 05, 2024 at 1141 hours INDICATIONS: Onset mid back pain beginning 2 weeks ago CTDI: vol (mGy):24.5 DLP: (mGycm):900 Technique: Multiple 1.25 mm axial sections of the thoracic spine without intravenous contrast have been obtained. 2-D sagittal and coronal reconstructions have been obtained. 3-D reconstructions have been obtained. Low dose protocols were performed. One or more of the following dose reduction techniques were used; automated exposure control, adjustment of the mA and/or KV according to patient size, use of iterative reconstruction technique. Findings: Prominent osteopenia No acute thoracic fracture Satisfactory alignment thoracic vertebral bodies Thoracic pedicles laminae transverse and posterior spinous processes are intact No focal soft tissue disc protrusion IMPRESSION: No acute thoracic fracture No focal thoracic disc protrusion
[2024-08-05] MEDS: KETOROLAC INJ 60 MG/2 ML VIAL 30 MG IM (12:06)
[2024-08-05] MEDS: BACLOFEN 10 MG TABLET 20 MG PO (12:07)
[2024-08-05] MEDS: traMADol HCL 50 MG TABLET PO (12:07)
[2024-08-05] MEDS: DEXAMETHASONE SOD PHOS INJ 10 MG/ML VIAL IM (12:07)
--- NOTE | 2024-08-05 12:15 | PC.NURSE ---
spoke w/PT they will come re-evaluate pt at 1330, pt has been medicated for them
--- NOTE | 2024-08-05 13:30 | PC.NURSE ---
Spoke w/PT, who states pt is in too much pain and too weak to get up and attempt to walk. States she updated provider as well and will speak w/SW.
--- NOTE | 2024-08-05 16:40 | PC.CC ---
Patient is a 66 year old male who presents to the Emergency Department for Chest and Back pain. ACSW Charley and SCANNER SUPERVISOR amanda, Maylin introduced self, role reason for visit. Limits of confidentiality were discussed. Patient appears to be alert and oriented to self, location and situation. Patient was pleasant and engaged in initial assessment. Patient was unable to provide a home address and stated he lives on [address] with his friends. Patient stated he is retired and does not have a primary care provider or a pharmacy of preference. Patient is unable to name a surrogate decision maker. Patient was able to ambulate and complete ADL's independently but is now having difficulties due to generalized weakness and back pain. ACS Charley completed PASSR Patient stated upon discharge he would like SNF placement and does not have a SNF preference. No other needs identified at this time and director patient financial services to remain available to address further concerns.
--- NOTE | 2024-08-05 16:48 | PC.CC ---
Addendum entered by Lisa Dumont 08/05/24 17:11: [facility] Patient was receptive to going to this facility. ASW arranging transportation [facility] [phone]. Original Note: Lisa MESA sent referral to SNF via [facility].
== END 2024-08-05 18:47 | disposition skilled nursing facility (03) ==
PROVIDERS: Emergency Medicine; Emergency Provider Emergency Medicine
DX: F22 Delusional disorders (principal); R07.89 Other chest pain; N63.42 Unspecified lump in left breast, subareolar; M48.061 Spinal stenosis, lumbar region without neurogenic claudication; M51.379 Other intervertebral disc degeneration, lumbosacral region without mention of lumbar back pain or lower extremity pain
CPT/HCPCS: 36415; 72128; 72131; 76642; 80053; 80307; 80320; 81001; 84484; 85025; 87077; 87086; 87186; 96365; 96372; 99284; J1100; J1885; J7030; A9270; G0480

== ENCOUNTER 2024-09-17 02:07 | Emergency (ER) | payer MEDICARE, MEDICAID, SELFPAY ==
[2024-09-17 02:09] VITALS: BP 160/84; PULSE 62; RESP 18; TEMP 36.9; O2SAT 97
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
[2024-09-17 03:27] LABS: Basophils # (Auto) 0.1 Thou/mm3 (0.0-0.2); Basophils % (Auto) 1 % (0-2.5); Eosinophils # (Auto) 0.1 Thou/mm3 (0.0-0.5); Eosinophils % (Auto) 2 % (0-10); Hematocrit 36.6 % (41.0-53.0); Hemoglobin 12.3 g/dL (13.5-16.0); Immature Granulocytes Auto 0.01 Thou/mm3 (0.00-0.00); Lymphocytes # (Auto) 1.8 Thou/mm3 (1.0-4.8); Lymphocytes % (Auto) 32 % (10-50); Mean Corpuscular HGB Conc 33.6 g/dl (31.0-37.0); Mean Corpuscular Hemoglobin 30.5 pg (25.0-35.0); Mean Corpuscular Volume 91 fL (80-100); Monocytes # (Auto) 0.7 Thou/mm3 (0.0-0.8); Monocytes % (Auto) 13 % (0-12); Neutrophils # (Auto) 2.8 Thou/mm3 (1.8-7.7); Neutrophils % (Auto) 51 % (37-80); Nucleated Red Blood Cell # 0.00 Thou/mm3 (0.00-0.00); Nucleated Red Blood Cell % 0 /100 WBC (0); Platelet Count 257 Thou/mm3 (140-440); RDW Standard Deviation 49.1 fL (35.1-43.9); Red Blood Count 4.03 Miln/mm3 (4.50-5.90); White Blood Count 5.5 Thou/mm3 (3.8-10.6)
[2024-09-17 03:57] LABS: INR 1.0 (0.9-1.3); Partial Thromboplastin Time 28.7 Seconds (22.0-36.0); Prothrombin Time 10.9 Seconds (9.0-12.2)
[2024-09-17 04:01] VITALS: BP 160/80; PULSE 47; RESP 18; TEMP 37.1; O2SAT 96
[2024-09-17 04:01] LABS: Alanine Aminotransferase 14 U/L (10-49); Albumin, Serum 3.9 gm/dL (3.4-4.8); Albumin/Globulin Ratio 2.0 (1.2-2.2); Alcohol, Blood Medical < 3.0 mg/dL (0-10.0); Alkaline Phosphatase 85 U/L (46-116); Anion Gap 9 (7-16); Aspartate Amino Transferase 25 U/L (0-34); BUN/Creatinine Ratio 17 Ratio (12-20); Bilirubin,Direct < 0.1 mg/dL (0.0-0.3); Bilirubin,Total 0.3 mg/dL (0.3-1.2); Blood Urea Nitrogen 15 mg/dL (9-23); Calcium 8.6 mg/dL (8.3-10.6); Calcium (Corrected) 8.7 mg/dL (8.5-10.1); Carbon Dioxide 25.2 mMol/L (20.0-31.0); Chloride 108 mMol/L (98-107); Creatine Kinase 289 U/L (34-171); Creatinine (Component) 0.9 mg/dL (0.6-1.3); Globulin 2.0 gm/dL (2.3-3.5); Glucose 97 mg/dL (74-106); Lipase 29 U/L (12-53); Magnesium 1.8 mg/dL (1.6-2.6); Osmolality,Calculated 283 (275-295); Potassium 3.6 mMol/L (3.4-5.1); Sodium 142 mMol/L (136-145); Total Protein 5.9 gm/dL (5.7-8.2); Troponin I < 0.020 ng/mL (0.0-0.045); eGFR > 60 See Note
[2024-09-17 04:10] VITALS: PULSE 54
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
--- NOTE | 2024-09-17 05:12 | PRELIM_ITS ---
CT scan of the chest, abdomen and pelvis without intravenous contrast (axial sections with sagittal and coronal reformats) September 17, 2024 0425 hours Clinical History: Fall Comparison: Findings: Bibasilar streaky atelectasis is present. There is no pleural effusion or pneumothorax. The aorta is unremarkable on this noncontrast study. There is no mediastinal collection. There is no pericardial effusion. The liver, gallbladder, spleen, pancreas, adrenals and kidneys are unremarkable on this noncontrast study. The bowel is unremarkable. The urinary bladder is unremarkable. There is no free fluid or free air. No fracture is identified. Mild degenerative changes are identified in the spine. Impression: No visceral or bony injury to the chest, abdomen or pelvis. Report Electronically Signed By: Vannesa Eisenberg 09/17/2024 5:11:56 AM [EST]
[2024-09-17 05:23] VITALS: BP 154/98; PULSE 66; RESP 18; O2SAT 97
[2024-09-17] MEDS: MORPHINE SULF INJ 10 MG/ML VIAL IM (05:32)
[2024-09-17 06:14] LABS: Amphetamine/Methamp Scrn,U Positive (Negative); Barbiturate Screen,Urine Negative (Negative); Benzodiazepines Screen,Urine Negative (Negative); Benzoylecgonine Screen, Ur Negative (Negative); Fentanyl Screen,Urine Negative (Negative); Opiate Screen,Urine Negative (Negative); THC Screen,Urine Negative (Negative)
--- NOTE | 2024-09-17 07:05 | PC.CC ---
Lisa KEARNS was consulted by water treatment operator [employer] regarding transportation for the patient back home. NURSERY TEACHER arranged transportation for the patient using [employer] [facility] [facility].
== END 2024-09-17 07:29 | disposition home or self-care (01) ==
PROVIDERS: Emergency Provider Emergency Medicine
DX: S20.219A Contusion of unspecified front wall of thorax, initial encounter (principal); S19.9XXA Unspecified injury of neck, initial encounter; S09.90XA Unspecified injury of head, initial encounter; S39.91XA Unspecified injury of abdomen, initial encounter; W05.1XXA Fall from non-moving nonmotorized scooter, initial encounter; R94.31 Abnormal electrocardiogram [ECG] [EKG]
CPT/HCPCS: 36415; 70450; 71250; 72125; 74176; 80053; 80307; 80320; 82248; 82550; 83690; 83735; 84484; 85025; 85610; 85730; 93005; 96372; 99284; J2270; G0480

== ENCOUNTER 2024-09-27 23:35 | Emergency (ER) | payer MEDICARE, MEDICAID, SELFPAY ==
[2024-09-27 23:36] VITALS: BP 127/74; PULSE 70; PULSE 74; RESP 18; TEMP 36.6; O2SAT 95; O2SAT 98; BMI 25.0
--- NOTE | 2024-09-27 23:54 | PD.EDCHEST ---
ED Chest Pain RME/HPI General Chief Complaint: Chest Pain Stated Complaint: CHEST PAIN Time Seen by Provider: 09/28/24 00:03 Arrival date/time: 09/27/24 23:35 RME / HPI RME / HPI narrative: See MDM. Related Data Previous Rx's ?Medication ?Instructions ?Recorded pantoprazole 40 mg tablet,delayed 40 mg PO QDAY #14 tabs 09/14/23 release (Protonix) ibuprofen 600 mg tablet 600 mg PO Q6H #30 tabs 06/01/24 baclofen 20 mg tablet 20 mg PO TID #14 tabs 08/05/24 gabapentin 300 mg capsule 300 mg PO BID #20 caps 08/05/24 cefuroxime axetil 500 mg tablet 500 mg PO BID #14 tabs 08/20/24 cyclobenzaprine 10 mg tablet 10 mg PO Q8H PRN muscle spasm #15 09/17/24 tabs lidocaine 5 % topical patch 2 patch topical QDAY PRN pain #30 09/17/24 (Lidoderm) ea albuterol sulfate 90 mcg/actuation 2 puff inhalation Q6H PRN 09/28/24 aerosol inhaler shortness of breath or wheezing #8.5 grams albuterol sulfate 90 mcg/actuation 2 puff inhalation Q6H PRN 09/28/24 aerosol inhaler (Ventolin HFA) shortness of breath or wheezing #6.7 grams amoxicillin 875 mg-potassium 1 tab PO BID 7 days #14 tabs 09/28/24 clavulanate 125 mg tablet azithromycin 500 mg tablet 500 mg PO QDAY 3 days #3 tabs 09/28/24 (Zithromax TRI-ZAHRA) cefdinir 300 mg capsule 300 mg PO BID #14 caps 09/28/24 Allergies Allergy/AdvReac Type Severity Reaction Status Date / Time codeine Allergy Severe Vomiting Verified 09/28/24 07:54 diphenhydramine Allergy Severe Nausea Verified 09/28/24 07:54 Review of Systems Review of Systems Systems Reviewed: All systems reviewed, normal except as documented Past Medical History Past Medical History CARDIAC: Negative Cardiac Disorders or Congestive Heart Failure RESPIRATORY: Negative Chronic Obstructive Pulmonary Disease (COPD) or Asthma GENITOURINARY: Negative Renal Disease ENT: Positive Cataracts ENDOCRINE: Positive Hyperthyroidism; Negative Diabetes Mellitus Type 1 or Diabetes Mellitus Type 2 HEMATOLOGIC: Negative Sickle Cell Disease PSYCHO/SOCIAL: Positive Recreational Drug Use Social History SMOKING STATUS: Current every day smoker SUBSTANCE USE: methamphetamine ED Exam Narrative Physical exam: As noted in MDM. Course Course Course Narrative: CXR is ordered for determining the etiology of chest pain. Quality Measures none Orders Category Date Time Status Bedside COVID-19 Antigen Test NOW Care 09/28/24 00:05 Completed Bedside Influenza A&B Antigen Test NOW Care 09/28/24 00:[address] Screening NOW Care 09/28/24 00:06 Completed EKG (ED ONLY) *Do not use* NOW Care 09/28/24 00:06 Completed Saline [Insert IV] NOW Care 09/28/24 00:[address] angio chest Stat Exams 09/28/24 00:06 Completed EKG (ED Only) Stat Exams 09/28/24 00:06 Draft XR chest 1V portable Stat Exams 09/28/24 00:06 Completed Acetaminophen Stat Lab 09/28/24 00:05 Completed Alcohol, Blood Medical Stat Lab 09/28/24 00:05 Completed BNP [B-Type Natriuretic Peptide] Stat Lab 09/28/24 00:05 Completed Bilirubin,Direct Stat Lab 09/28/24 00:05 Completed CBC Stat Lab 09/28/24 00:05 Completed CK [Creatine Kinase] Stat Lab 09/28/24 00:05 Completed CMP [Comprehensive Metabolic Panel] Stat Lab 09/28/24 00:05 Completed D-Dimer Stat Lab 09/28/24 00:05 Completed Drug Screen,Urine Stat Lab 09/28/24 00:45 Completed Free T4 (Free Thyroxine) Stat Lab 09/28/24 00:05 Completed Lipase Stat Lab 09/28/24 00:05 Completed Magnesium Stat Lab 09/28/24 00:05 Completed Salicylate Stat Lab 09/28/24 00:05 Completed TSH [Thyroid Stimulating Hormone] Stat Lab 09/28/24 00:05 Completed Troponin I Stat Lab 09/28/24 00:05 Completed Azithromycin Po [Zithromax PO] Med 09/28/24 03:09 Discontinued 500 mg PO X1 ONE Morphine Inj Med 09/28/24 00:05 Discontinued 4 mg IVP X1 ONE Ondansetron Inj [Zofran Inj] Med 09/28/24 00:05 Discontinued 4 mg IVP X1 ONE Sodium Chloride 0.9% 1000 ml [Ns] 1,000 ml Med 09/28/24 00:05 Discontinued IV 999 mls/hr Sodium Chloride 0.9% 1000 ml [Ns] 1,000 ml Med 09/28/24 01:31 Discontinued IV 999 mls/hr cefTRIAXone/D5w 1gm IV premix [Rocephin/D5w 1gm IV Med 09/28/24 03:10 Discontinued premix] 1 gm in 50 ml IV X1 Vital Signs Vital signs: Vital Signs Temperature 97.9 F 09/27/24 23:36 Pulse Rate 74 09/27/24 23:36 Respiratory Rate 18 09/27/24 23:36 Blood Pressure 127/74 09/27/24 23:36 Pulse Oximetry (%) 95 09/27/24 23:36 Oxygen Delivery Method Room Air 09/27/24 23:36 Chest Pain MDM Narrative MDM Narrative:: This section includes all my notes and documentations, including HPI, PE, and ED course. Jamey Reddy MD HPI: 68yo male BIBA from home here with right-sided chest pain. Patient's pain worsens when he takes a deep breath. He was given aspirin, sublingual nitroglycerin, and 1-inch nitropaste en route without relief. He reports about a week history of worsening cough, productive cough, purulent sputum, and dyspnea. No other complaints reported. ROS: All negative except as documented in HPI. Physical Exam: General: Alert and oriented. Hacking cough noted. Eyes: Conjunctivae and lids clear. ENT: No nasal congestion. Pharynx normal. TM normal bilaterally. Neck: Supple. Heart: RRR. Lungs: No respiratory distress. Good air movement with rails. Abdomen: Soft and nontender. Normal bowel sounds. No distension. No rebound or guarding. Back: No CVA tenderness. Skin: Warm and dry. Neuro: Alert and oriented X 3. I reviewed EMS notes. I reviewed all diagnostic test results. My interpretation of the EKG is sinus rhythm with nonspecific ST-T changes. My interpretation of the chest x-ray is infiltrates. My review of the CTA juliann report is infiltrates. Blood tests are unremarkable. UDS remarkable for methamphetamines. At this point, diagnoses include pneumonia and methamphetamine use. Treatment here included Morphine, Zofran, IV fluid, Rocephin, Azithromycin. Significant improvement noted. Recommended outpatient management. Based on my best medical judgment, made decision no further evaluation or treatment indicated at this time. Patient understands and agrees to the discharge instructions customized and printed, see below. Discharge instructions from Dr. Reddy: 1. After extensive evaluation, there is no life-threatening condition. Such as heart attack or pulmonary embolism (blood clots in your lungs) or pneumothorax (collapsed lung). 2. Your pain is originating from the chest wall and not from an internal organ. The chest wall has many joints and muscles between the ribs. 3. From pneumonia and coughing. --No physical exertion for 3 days to help rest the lungs. ?No smoking or exposure to smoking or pets or dust or cold or humidity. --Zithromax and cefdinir to kill the germs causing the pneumonia. --Albuterol 2 puffs every 4-6 hours as needed for cough or shortness of breath. 4. See a private doctor on 09/29/2024 for recheck and further care. Ask to review all test results and official radiology reports, to make sure you receive all necessary follow-ups and monitoring. Ask for help until you are completely better. To make sure there is no serious underlying heart condition, ask to help you get more tests for your heart that cannot be done here in the ER. Such as Holter Monitor (cardiac monitoring at home from a day to even a month), heart stress test (on treadmill or with medication), echocardiogram (imaging of your heart structures), heart catherization (checking for blockages in your heart arteries), and a referral to see a Career Technical Counselor. Ask to help you to quit methamphetamine and all drugs. To prevent severe and potentially fatal injuries and illnesses. 5. Seek immediate medical care with worsening or with any concerns. Jamey Reddy MD Patient data External records reviewed:: [facility] previous records (Per chart review, patient was seen here on 09/17/24 for chest wall contusion.) and EMS form Clinical information provided by:: patient Social determinants that could affect healthcare access:: none Patient has the following chronic illnesses:: HTN How is presenting disease/condition affected by chronic disease/condition?: uneffected by Evaluation data The following diagnostics were reviewed and interpreted by me:: lab results, radiology exam(s) and EKG tracing(s) (My interpretation of the EKG is: Sinus rhythm (71 bpm) with nonspecific ST-T changes. Jamey Reddy MD) Lab and/or radiology exams considered but not ordered:: none Interpretation Summary: I reviewed all diagnostic test results. My interpretation of the EKG is sinus rhythm with nonspecific ST-T changes. My interpretation of the chest x-ray is infiltrates. My review of the CTA juliann report is infiltrates. Blood tests are unremarkable. UDS remarkable for methamphetamines. Medications / Prescriptions Medications or Prescriptions considered but not ordered:: none Medication administrations:: Medication Administration History Discontinued Medications Azithromycin (Azithromycin 250 Mg Tablet) 500 mg PO X1 ONE Stop: 09/28/24 03:10 Last Admin: 09/28/24 03:37 Dose: 500 mg Documented By: CRYSTAL Sodium Chloride (Ns) 1,000 mls @ 999 mls/hr IV .Q1H1M ONE Stop: 09/28/24 01:05 Last Infusion: 09/28/24 01:27 Dose: Infused Documented By: Admin: 09/28/24 00:26 Dose: 999 mls/hr Documented By: CRYSTAL Sodium Chloride (Ns) 1,000 mls @ 999 mls/hr IV .Q1H1M ONE Stop: 09/28/24 02:31 Last Infusion: 09/28/24 03:00 Dose: Infused Documented By: Admin: 09/28/24 01:57 Dose: 999 mls/hr Documented By: CRYSTAL Ceftriaxone Sodium/Dextrose (Rocephin/D5w 1gm Iv Premix) 1 gm in 50 mls @ 100 mls/hr IV X1 ONE Stop: 09/28/24 03:39 Last Infusion: 09/28/24 04:08 Dose: Infused Documented By: Admin: 09/28/24 03:38 Dose: 100 mls/hr Documented By: CRYSTAL Morphine Sulfate (Morphine Sulf Inj 10 Mg/Ml Vial) 4 mg IVP X1 ONE Stop: 09/28/24 00:06 Last Admin: 09/28/24 00:26 Dose: 4 mg Documented By: CRYSTAL Ondansetron HCl (Ondansetron Inj 2 Mg/Ml Inj 2 Ml) 4 mg IVP X1 ONE; Protocol Stop: 09/28/24 00:06 Last Admin: 09/28/24 00:26 Dose: 4 mg Documented By: CRYSTAL Morphine, Zofran, IV fluid, Rocephin, Azithromycin Consultations Consultation(s) initiated? (list below): No Diagnosis Chest Pain Differential Diagnosis: fracture of rib, pneumothorax, stable angina, unstable angina pectoris, atypical chest pain, st elevation myocardial infarction, costochondritis, chest pain, biliary colic and other (Pneumonia) Most likely diagnosis given after review of the tests above:: Pneumonia, Methamphetamine use Admission Indicated Admission indicated?: not indicated Explain why admission is indicated or not indicated:: With significant improvement and no condition needing emergent intervention, there was no indication for admission. Admission Request Was there a request for admission?: No Disposition Plan Disposition Plan: Discharge Discharge Attestation Discharge Attestation: The patient and all family members were given an opportunity to ask questions and understood the discharge instructions. Discharge instructions specifically effects, indications for sooner follow up or return to the emergency department, and the expected course of current diagnosis. Patient condition: Stable Discharge Plan Plan Patient Disposition: HOME (Self Care) Prescriptions/Referrals Prescriptions/Med Rec: New albuterol sulfate 90 mcg/actuation HFA aerosol inhaler 2 puff inhalation Q6H PRN (Reason: shortness of breath or wheezing) Qty: 8.5 0RF cefdinir 300 mg capsule 300 mg PO BID Qty: 14 0RF azithromycin [Zithromax TRI-ZAHRA] 500 mg tablet 500 mg PO QDAY 3 Days Qty: 3 0RF No Action ibuprofen 600 mg tablet 600 mg PO Q6H Qty: 30 0RF baclofen 20 mg tablet 20 mg PO TID Qty: 14 0RF gabapentin 300 mg capsule 300 mg PO BID Qty: 20 0RF cefuroxime axetil 500 mg tablet 500 mg PO BID Qty: 14 0RF pantoprazole [Protonix] 40 mg tablet,delayed release (DR/EC) 40 mg PO QDAY Qty: 14 0RF lidocaine [Lidoderm] 5 % adhesive patch,medicated 2 patch topical QDAY PRN (Reason: pain) Qty: 30 0RF Rx Instructions: leave on most painful area for up to 12 hrs cyclobenzaprine 10 mg tablet 10 mg PO Q8H PRN (Reason: muscle spasm) Qty: 15 0RF albuterol sulfate [Ventolin HFA] 90 mcg/actuation HFA aerosol inhaler 2 puff inhalation Q6H PRN (Reason: shortness of breath or wheezing) Qty: 6.7 0RF amoxicillin-pot clavulanate 875-125 mg tablet 1 tab PO BID 7 Days Qty: 14 0RF Referrals: No Primary/Family,Physician [Primary Care Provider] - In 1 week Problem List Clinical Impression: Pneumonia, Methamphetamine use Patient/Caregiver Discharge Instructions Discharge Activity: activity as tolerated Education Materials: ED Drug Abuse, ED Pneumonia (Adult) Additional Instructions: Discharge instructions from Dr. Reddy: 1. After extensive evaluation, there is no life-threatening condition.? Such as heart attack or pulmonary embolism (blood clots in your lungs) or pneumothorax (collapsed lung). 2. Your pain is originating from the chest wall and not from an internal organ.? The chest wall has many joints and muscles between the ribs. 3. From pneumonia and coughing. --No physical exertion for 3 days to help rest the lungs. ?No smoking or exposure to smoking or pets or dust or cold or humidity. --Zithromax and cefdinir to kill the germs causing the pneumonia. --Albuterol 2 puffs every 4-6 hours as needed for cough or shortness of breath. 4. See a private doctor on 09/29/2024 for recheck and further care. Ask to review all test results and official radiology reports, to make sure you receive all necessary follow-ups and monitoring. Ask for help until you are completely better. To make sure there is no serious underlying heart condition, ask to help you get more tests for your heart that cannot be done here in the ER.? Such as Holter Monitor (cardiac monitoring at home from a day to even a month), heart stress test (on treadmill or with medication), echocardiogram (imaging of your heart structures), heart catherization (checking for blockages in your heart arteries), and a referral to see a Career Technical Counselor.? Ask to help you to quit methamphetamine and all drugs. To prevent severe and potentially fatal injuries and illnesses. 5. Seek immediate medical care with worsening or with any concerns.?? Print Language: Syrian Stand Alone Forms: [employer]mmy Award Info., Patient Portal Info Letter
--- NOTE | 2024-09-28 00:06 | EKG_ITS ---
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
--- NOTE | 2024-09-28 00:06 | XR_ITS ---
Examination: CTA chest with intravenous contrast 2-D reconstructions 3-D reconstructions, vascular Date and time of exam: September 28, 2024, 0147 hours, comparison CT chest September 17, 2024. INDICATIONS: Shortness of breath chest pain beginning 2 months ago CTDI: vol (mGy) 14.71 DLP: (mGycm) 312 Technique: Multiple axial sections of the thorax have been obtained. 3 mm slice thickness, from below the hemidiaphragms to above the apices of the lungs. Mediastinal and lung density settings have been obtained. 2-D sagittal and coronal reconstructions. 3-D angiographic renderings, 3-D volume renderings, 3D post processing, vascular maximum intensity projections obtained. Contrast administered is 100 cc Isovue 370 intravenous.. Low dose protocols were performed. One or more of the following dose reduction techniques were used; automated exposure control, adjustment of the mA and/or KV according to patient size, use of iterative reconstruction technique. Findings: Aneurysmal dilatation ascending thoracic aorta 4.3 cm No pulmonary artery filling defects. No paratracheal tracheobronchial or bronchopulmonary adenopathy. Minimal opacity right base Mild enlargement cardiac contour No pleural disease No focal liver or splenic lesion No pancreatic mass No gallstones noted Kidneys partially visualized and no hydronephrosis Mild diffuse thoracic degenerative disc disease IMPRESSION: Mild aneurysmal dilatation ascending thoracic aorta. Negative for pulmonary artery emboli Atelectasis versus minimal pneumonia right base, clinical correlation advised
--- NOTE | 2024-09-28 00:06 | XR_ITS ---
Examination: AP chest single view Technique one AP portable upright chest single view Date and time: September 28, 2024 at 0015 hours, comparison June 01, 2024 INDICATIONS: Shortness of breath today. FINDINGS: Mild accentuation basilar bronchovascular markings. Normal heart size Prominent osteopenia. No lobar pneumonia IMPRESSION: Basilar bronchitis pattern
[2024-09-28] MEDS: SODIUM CHLORIDE 0.9% 1000 ML 1,000 ML 999 ML IV ×2 (00:26→01:57)
[2024-09-28] MEDS: MORPHINE SULF INJ 10 MG/ML VIAL 4 MG IVP (00:26)
[2024-09-28] MEDS: ONDANSETRON INJ 2 MG/ML INJ 2 ML 4 MG IVP (00:26)
[2024-09-28 00:31] LABS: Basophils # (Auto) 0.1 Thou/mm3 (0.0-0.2); Basophils % (Auto) 1 % (0-2.5); Eosinophils # (Auto) 0.2 Thou/mm3 (0.0-0.5); Eosinophils % (Auto) 3 % (0-10); Hematocrit 35.8 % (41.0-53.0); Hemoglobin 11.9 g/dL (13.5-16.0); Immature Granulocytes Auto 0.01 Thou/mm3 (0.00-0.00); Lymphocytes # (Auto) 1.8 Thou/mm3 (1.0-4.8); Lymphocytes % (Auto) 30 % (10-50); Mean Corpuscular HGB Conc 33.2 g/dl (31.0-37.0); Mean Corpuscular Hemoglobin 30.5 pg (25.0-35.0); Mean Corpuscular Volume 92 fL (80-100); Monocytes # (Auto) 0.8 Thou/mm3 (0.0-0.8); Monocytes % (Auto) 14 % (0-12); Neutrophils # (Auto) 3.2 Thou/mm3 (1.8-7.7); Neutrophils % (Auto) 52 % (37-80); Nucleated Red Blood Cell # 0.00 Thou/mm3 (0.00-0.00); Nucleated Red Blood Cell % 0 /100 WBC (0); Platelet Count 254 Thou/mm3 (140-440); RDW Standard Deviation 48.0 fL (35.1-43.9); Red Blood Count 3.90 Miln/mm3 (4.50-5.90); White Blood Count 6.0 Thou/mm3 (3.8-10.6)
[2024-09-28 00:56] LABS: B-Type Natriuretic Peptide < 20 pg/mL (0-100)
[2024-09-28 00:57] LABS: D-Dimer 369 ng/mL (<600)
[2024-09-28 01:04] LABS: Acetaminophen < 2.0 mcg/mL (10.0-20.0); Alanine Aminotransferase 12 U/L (10-49); Albumin, Serum 4.0 gm/dL (3.4-4.8); Albumin/Globulin Ratio 1.8 (1.2-2.2); Alcohol, Blood Medical < 3.0 mg/dL (0-10.0); Alkaline Phosphatase 108 U/L (46-116); Anion Gap 11 (7-16); Aspartate Amino Transferase 25 U/L (0-34); BUN/Creatinine Ratio 20 Ratio (12-20); Bilirubin,Direct 0.1 mg/dL (0.0-0.3); Bilirubin,Total 0.4 mg/dL (0.3-1.2); Blood Urea Nitrogen 24 mg/dL (9-23); Calcium 9.4 mg/dL (8.3-10.6); Calcium (Corrected) 9.4 mg/dL (8.5-10.1); Carbon Dioxide 23.3 mMol/L (20.0-31.0); Chloride 108 mMol/L (98-107); Creatine Kinase 269 U/L (34-171); Creatinine (Component) 1.2 mg/dL (0.6-1.3); Estimated Creatinine Clearance 54.3 mL/min (>60); Free T4 (Free Thyroxine) 1.05 ng/dL (0.89-1.76); Globulin 2.2 gm/dL (2.3-3.5); Glucose 113 mg/dL (74-106); Lipase 23 U/L (12-53); Magnesium 1.7 mg/dL (1.6-2.6); Osmolality,Calculated 288 (275-295); Potassium 3.9 mMol/L (3.4-5.1); Salicylate < 3.0 mg/dL; Sodium 142 mMol/L (136-145); Thyroid Stimulating Hormone 8.62 uIU/mL (0.55-4.78); Total Protein 6.2 gm/dL (5.7-8.2); Troponin I < 0.020 ng/mL (0.0-0.045); eGFR > 60 See Note
[2024-09-28 01:12] LABS: Amphetamine/Methamp Scrn,U Positive (Negative); Barbiturate Screen,Urine Negative (Negative); Benzodiazepines Screen,Urine Negative (Negative); Benzoylecgonine Screen, Ur Negative (Negative); Fentanyl Screen,Urine Negative (Negative); Opiate Screen,Urine Negative (Negative); THC Screen,Urine Negative (Negative)
[2024-09-28 02:20] VITALS: BP 133/64; PULSE 60; RESP 16; O2SAT 97
--- NOTE | 2024-09-28 03:02 | PRELIM_ITS ---
CT angiogram of the chest with intravenous contrast (axial sections with sagittal and coronal reformats) September 28, 2024 0147 hours Clinical History: SOB Technique:Helical axial sections with sagittal and coronal reformats of the chest were obtained with intravenous contrast. Iterative reconstruction technique was employed to reduce patient radiation exposure. 3D/MIP reconstructed images were also provided. Comparison: None. Findings: There is no filling defect within the pulmonary artery divisions to suggest pulmonary thromboembolism. The mediastinum demonstrates no evidence of mass or lymphadenopathy. The thoracic aorta is unremarkable. There is no pericardial effusion. Small consolidation in the right lower lobe. No evidence of pleural effusion or pneumothorax. Degenerative changes of the imaged portions of the spine. No acute fractures. Dilated left atrium. The visualized upper abdominal viscera are unremarkable. Bilateral gynecomastia. Impression: 1. No CT evidence of pulmonary thromboembolism. 2. Small consolidation in the right lower lobe, atelectasis versus small focus of pneumonia. 3. Dilated left atrium. Report Electronically Signed By: Chi Stone 09/28/2024 3:01:36 AM [EST]
[2024-09-28] MEDS: AZITHROMYCIN 250 MG TABLET 500 MG PO (03:37)
[2024-09-28] MEDS: cefTRIAXone/D5w 1gm IV premix 1 GM/50 ML BAG IV (03:38)
[2024-09-28 04:30] VITALS: BP 131/86; PULSE 60; RESP 18; TEMP 37.1; O2SAT 96
== END 2024-09-28 04:25 | disposition home or self-care (01) ==
PROVIDERS: Emergency Provider Emergency Medicine
DX: J18.9 Pneumonia, unspecified organism (principal); F15.90 Other stimulant use, unspecified, uncomplicated; E05.90 Thyrotoxicosis, unspecified without thyrotoxic crisis or storm; I10 Essential (primary) hypertension; F17.210 Nicotine dependence, cigarettes, uncomplicated; Z79.899 Other long term (current) drug therapy; Z88.5 Allergy status to narcotic agent; Z88.8 Allergy status to other drugs, medicaments and biological substances
CPT/HCPCS: 36415; 71045; 71275; 80053; 80307; 80320; 80329; 82248; 82550; 83690; 83735; 83880; 84439; 84443; 84484; 85025; 85379; 87400; 87811; 93005; 96361; 96365; 96375; 99284; A4649; J0696; J2270; J2405; J7030; Q9967; A9270; G0480

== ENCOUNTER 2024-09-28 07:51 | Emergency (ER) | payer MEDICARE, MEDICAID, SELFPAY ==
[2024-09-28 07:52] VITALS: BMI 22.3
[2024-09-28 08:02] VITALS: BP 116/73; PULSE 58; RESP 16; TEMP 36.6; O2SAT 95
--- NOTE | 2024-09-28 08:03 | XR_ITS ---
Examination: AP lateral chest 2 views TECHNIQUE: AP sitting lateral chest 2 views Date and time: September 28, 2024 0831 hours INDICATIONS: Shortness of breath today. FINDINGS: Mild hyperexpansion. Normal heart size. Early bibasilar pneumonia. Moderate osteopenia IMPRESSION: Early bibasilar pneumonia.
--- NOTE | 2024-09-28 08:05 | PD.EDRME ---
Rapid Medical Screening Exam E Arrival date/time: 09/28/24 07:51 68-year-old male with no known medical history presents to the emergency room with a chief complaint of shortness of breath, chest congestion and coughing up phlegm, bilateral eye discharge x 1 week I have greeted and performed a focused initial assessment of this patient. A comprehensive ED assessment and evaluation of the patient, analysis of all test results, and completion of the medical decision making process will be conducted by additional ED providers. Chief Complaint: Shortness of Breath/Dyspnea Vital signs: Vital Signs Temperature 97.8 F 09/28/24 08:02 Pulse Rate 58 L 09/28/24 08:02 Respiratory Rate 16 09/28/24 08:02 Blood Pressure 116/73 09/28/24 08:02 Pulse Oximetry (%) 95 09/28/24 08:02 Oxygen Delivery Method Room Air 09/28/24 08:02 Vital signs reviewed by provider: Yes
[2024-09-28] MEDS: [UNRECOGNIZED DRUG - OTHER] BOTH EYES (09:15)
[2024-09-28 10:08] LABS: Basophils # (Auto) 0.1 Thou/mm3 (0.0-0.2); Basophils % (Auto) 1 % (0-2.5); Eosinophils # (Auto) 0.2 Thou/mm3 (0.0-0.5); Eosinophils % (Auto) 4 % (0-10); Hematocrit 35.4 % (41.0-53.0); Hemoglobin 11.9 g/dL (13.5-16.0); Immature Granulocytes Auto 0.01 Thou/mm3 (0.00-0.00); Lymphocytes # (Auto) 1.4 Thou/mm3 (1.0-4.8); Lymphocytes % (Auto) 26 % (10-50); Mean Corpuscular HGB Conc 33.6 g/dl (31.0-37.0); Mean Corpuscular Hemoglobin 31.4 pg (25.0-35.0); Mean Corpuscular Volume 93 fL (80-100); Monocytes # (Auto) 0.7 Thou/mm3 (0.0-0.8); Monocytes % (Auto) 14 % (0-12); Neutrophils # (Auto) 2.9 Thou/mm3 (1.8-7.7); Neutrophils % (Auto) 55 % (37-80); Nucleated Red Blood Cell # 0.00 Thou/mm3 (0.00-0.00); Nucleated Red Blood Cell % 0 /100 WBC (0); Platelet Count 224 Thou/mm3 (140-440); RDW Standard Deviation 50.1 fL (35.1-43.9); Red Blood Count 3.79 Miln/mm3 (4.50-5.90); White Blood Count 5.3 Thou/mm3 (3.8-10.6)
[2024-09-28 10:24] LABS: INR 1.0 (0.9-1.3); Partial Thromboplastin Time 28.2 Seconds (22.0-36.0); Prothrombin Time 11.1 Seconds (9.0-12.2)
[2024-09-28 10:29] LABS: Alanine Aminotransferase 11 U/L (10-49); Albumin, Serum 3.8 gm/dL (3.4-4.8); Albumin/Globulin Ratio 2.0 (1.2-2.2); Alkaline Phosphatase 98 U/L (46-116); Anion Gap 9 (7-16); Aspartate Amino Transferase 27 U/L (0-34); BUN/Creatinine Ratio 19 Ratio (12-20); Bilirubin,Total 0.4 mg/dL (0.3-1.2); Blood Urea Nitrogen 17 mg/dL (9-23); Calcium 9.1 mg/dL (8.3-10.6); Calcium (Corrected) 9.3 mg/dL (8.5-10.1); Carbon Dioxide 24.4 mMol/L (20.0-31.0); Chloride 109 mMol/L (98-107); Creatinine (Component) 0.9 mg/dL (0.6-1.3); Estimated Creatinine Clearance 79.5 mL/min (>60); Globulin 1.9 gm/dL (2.3-3.5); Glucose 88 mg/dL (74-106); Magnesium 1.9 mg/dL (1.6-2.6); Osmolality,Calculated 283 (275-295); Potassium 4.1 mMol/L (3.4-5.1); Sodium 142 mMol/L (136-145); Total Protein 5.7 gm/dL (5.7-8.2); Troponin I < 0.020 ng/mL (0.0-0.045); eGFR > 60 See Note
[2024-09-28 10:49] LABS: B-Type Natriuretic Peptide 46 pg/mL (0-100)
--- NOTE | 2024-09-28 12:23 | PC.CC ---
1223-ASW attempted to arrange transportation for the pt via [facility] on demand but they were not taking calls at the time. ASW then arranged transporation for the pt to return home via [facility].
--- NOTE | 2024-10-09 09:36 | EDNOTE_ITS ---
Upper Respiratory Inf. RME/HPI General Chief Complaint: Shortness of Breath/Dyspnea Stated Complaint: CAN'T BREATH, NOSE IS STUFF UP Time Seen by Provider: 09/28/24 08:48 Source: patient Arrival date/time: 09/28/24 07:51 68-year-old male with no known medical history presents to the emergency room with a chief complaint of shortness of breath, chest congestion, phlegm, bilateral eye discharge x 1 week. Mode of arrival: ambulatory Limitations: no limitations RME / HPI RME / HPI Narrative: 09/28/24 07:51 68-year-old male with no known medical history presents to the emergency room with a chief complaint of shortness of breath, chest congestion and coughing up phlegm, bilateral eye discharge x 1 week I have greeted and performed a focused initial assessment of this patient. A comprehensive ED assessment and evaluation of the patient, analysis of all test results, and completion of the medical decision making process will be conducted by additional ED providers. Related Data Previous Rx's ?Medication ?Instructions ?Recorded pantoprazole 40 mg tablet,delayed 40 mg PO QDAY #14 ta bs 09/14/23 release (Protonix) ibuprofen 600 mg tablet 600 mg PO Q6H #30 tabs 06/01 baclofen 20 mg tablet 20 mg PO TID #14 tabs gabapentin 300 mg capsule 300 mg PO BID #20 caps 08/05 cefuroxime axetil 500 mg tablet 500 mg PO BID #14 tabs 08/20/24 cyclobenzaprine 10 mg tablet 10 mg PO Q8H PRN muscle s pasm #15 09/17/24 tabs lidocaine 5 % topical patch 2 patch topical QDAY PRN p ain #30 09/17/24 (Lidoderm) ea albuterol sulfate 90 mcg/actuation 2 puff inhalation Q 6H PRN 09/28/24 aerosol inhaler shortness of breath or wheez ing #8.5 grams albuterol sulfate 90 mcg/actuation 2 puff inhalation Q 6H PRN 09/28/24 aerosol inhaler (Ventolin HFA) shortness of breath or wheezing #6.7 grams cefdinir 300 mg capsule 300 mg PO BID #14 caps 09/28 Allergies Allergy/AdvReac Type Severity Reaction Status Date / Time codeine Allergy Severe Vomiting Verified 09/28/24 07:54 diphenhydramine Allergy Severe Nausea Verified 09/28/24 07:54 Review of Systems Review of Systems Systems Reviewed: All systems reviewed, normal except as documented Constitutional Constitutional: Reports system reviewed and no additional complaints, except as documented, Denies fatigue, Denies fever(s), Denies headache(s) and Denies weakness Eyes Eyes: Reports system reviewed and no additional complaints, except as documented, Denies blurry vision, Denies change in vision and Reports eye discharge ENT Ears, Nose, Mouth, and Throat: Reports system reviewed and no additional complaints, except as documented, Denies otalgia, Denies headache(s), Denies nasal congestion, Denies throat swelling and Denies vertigo Cardiovascular Cardiovascular: Reports system reviewed and no additional complaints, except as documented, Denies chest pain, Denies dyspnea and Denies dyspnea on exertion Respiratory Respiratory: Reports system reviewed and no additional complaints, except as documented, Reports change in phlegm color, Reports chest congestion, Reports cough, Denies dyspnea, Denies dyspnea on exertion and Denies wheezing Gastrointestinal Gastrointestinal: Reports system reviewed and no additional complaints, except as documented, Denies abdominal pain, Denies cramping, Denies nausea and Denies vomiting Genitourinary Genitourinary: Reports system reviewed and no additional complaints, except as documented, Denies dysuria and Denies hematuria Musculoskeletal Musculoskeletal: Reports system reviewed and no additional complaints, except as documented Integumentary/Breasts Skin/Breast: Reports system reviewed and no additional complaints, except as documented and Denies wounds Neurologic Neurologic: Reports system reviewed and no additional complaints, except as documented, Denies confusion, Denies headache(s), Denies lack of coordination, Denies vertigo and Denies weakness Psychiatric Psychiatric: Reports system reviewed and no additional complaints, except as documented, Denies anxiety, Denies confusion, Denies depression, Denies paranoia, Denies suicidal ideation and Denies tactile hallucinations Endocrine Endocrine: Reports system reviewed and no additional complaints, except as documented and Denies fatigue Hematologic/Lymphatic Hematologic/Lymphatic: Reports system reviewed and no additional complaints, except as documented and Denies lymphadenopathy Allergic/Immunologic Allergic/Immunologic: Reports system reviewed and no additional complaints, except as documented, Denies throat swelling, Denies urticaria and Denies wheezing Past Medical History Past Medical History CARDIAC: Negative Cardiac Disorders or Congestive Heart Failure RESPIRATORY: Negative Chronic Obstructive Pulmonary Disease (COPD) or Asthma GENITOURINARY: Negative Renal Disease ENT: Positive Cataracts ENDOCRINE: Positive Hyperthyroidism; Negative Diabetes Mellitus Type 1 or Diabetes Mellitus Type 2 HEMATOLOGIC: Negative Sickle Cell Disease PSYCHO/SOCIAL: Positive Recreational Drug Use Social History SMOKING STATUS: Current every day smoker SUBSTANCE USE: methamphetamine ED Exam General Limitations: Present no limitations General appearance: Present alert and in no apparent distress Head Head exam: Present atraumatic Eye Eye exam: Present normal appearance, PERRL and EOMI Expanded Eye Exam Pupils: Bilateral: regular, round and reactive Sclera/Conjunctival: bilateral: normal inspection and exudate ENT ENT exam: Present normal exam, normal oropharynx and mucous membranes moist Neck Neck exam: Present normal inspection, full ROM and trachea midline Chest Chest inspection: Present normal inspection and symmetric chest wall rise Respiratory Respiratory exam: Present normal lung sounds bilaterally; Absent respiratory distress, wheezes, stridor, accessory muscle use or prolonged expiratory phase Cardiovascular Cardiovascular exam: Present regular rate, normal rhythm and normal heart sounds Abdominal Exam Abdominal exam: Present soft and normal bowel sounds Extremities Exam Extremities exam: Present normal inspection and full ROM Back Exam Back exam: Present normal inspection and full ROM Neurological Exam Neurological exam: Present alert, oriented X3 and CN II-XII intact Psychiatric Psychiatric exam: Present normal affect and normal mood Skin Skin exam: Present warm, dry, intact and normal color Course Quality Measures none Orders Category Date Time Status EKG (ED ONLY) *Do not use* NOW Care 09/28/24 08:03 Completed EKG (ED Only) Stat Exams 09/28/24 08:03 Ordered XR chest 2V Stat Exams 09/28/24 08:03 Completed B-Type Natriuretic Peptide Stat Lab 09/28/24 09:42 Completed CBC Stat Lab 09/28/24 09:42 Completed Comprehensive Metabolic Panel Stat Lab 09/28/24 09:42 Completed Magnesium Stat Lab 09/28/24 09:42 Completed Partial Thromboplastin Time Stat Lab 09/28/24 09:42 Completed Prothrombin Time with INR Stat Lab 09/28/24 09:42 Completed Troponin I Stat Lab 09/28/24 09:42 Completed Tobramycin Op Oint 0.3% [Tobrex Op Oint 0.3%] Med 09/28/24 08:04 Discontinued See Dose Instructions BOTH EYES X1 ONE Vital Signs Vital signs: Vital Signs Temperature 97.8 F 09/28/24 08:02 Pulse Rate 58 L 09/28/24 08:02 Respiratory Rate 16 09/28/24 08:02 Blood Pressure 116/73 09/28/24 08:02 Pulse Oximetry (%) 95 09/28/24 08:02 Oxygen Delivery Method Room Air 09/28/24 08:02 Upper Respiratory Infection MDM Narrative MDM Narrative:: 68-year-old male with no known medical history presents to the emergency room with a chief complaint of shortness of breath, chest congestion, phlegm, bilateral eye discharge x 1 week. Patient is hemodynamically stable and in no apparent distress Physical examination shows clear bilateral lung sounds there is no wheezing stridor or any abnormal breath sounds. The patient has some mild erythema to the conjunctiva as well as bilateral eye discharge. eyedrops were sent to the patient's pharmacy. The chest x-ray showed some pneumonic infiltrates of the lower lobes. Antibiotics are sent to the patient's pharmacy Patient was discharged and educated to follow-up with primary care provider in the next 24 to 48 hours and return to the emergency room for any evidence of worsening signs or symptoms Patient data External records reviewed:: [facility] previous records Clinical information provided by:: patient Social determinants that could affect healthcare access:: none Patient has the following chronic illnesses:: No chronic How is presenting disease/condition affected by chronic disease/condition?: no chronic disease Evaluation data The following diagnostics were reviewed and interpreted by me:: lab results and radiology exam(s) Lab and/or radiology exams considered but not ordered:: Labs and radiology exams considered and ordered Interpretation Summary: Chest [id number]: Mild hyperexpansion. Normal heart size. Early bibasilar pneumonia. Moderate osteopenia IMPRESSION: Early bibasilar pneumonia. Medications / Prescriptions Medications or Prescriptions considered but not ordered:: Medication given Medication administrations:: Medication Administration History Discontinued Medications Tobramycin Sulfate (Tobramycin Op Oint 0.3% 3.5 Gm Tube) 0 gm BOTH EYES X1 ONE Stop: 09/28/24 08:05 Last Admin: 09/28/24 09:15 Dose: 1 each Documented By: ELLIE Medication given Consultations Consultation(s) initiated? (list below): No Diagnosis Upper Respiratory Differential Diagnosis: upper respiratory infection, viral infection, influenza and pharyngitis Most likely diagnosis given after review of the tests above:: N/A Admission Indicated Admission indicated?: not indicated Admission Request Was there a request for admission?: No Disposition Plan Disposition Plan: Discharge Discharge Attestation Discharge Attestation: The patient and all family members were given an opportunity to ask questions and understood the discharge instructions. Discharge instructions specifically effects, indications for sooner follow up or return to the emergency department, and the expected course of current diagnosis. Patient condition: Stable Discharge Plan Plan Patient Disposition: HOME (Self Care) Discharge Disposition comment: Stable Prescriptions/Referrals Prescriptions/Med Rec: New albuterol sulfate [Ventolin HFA] 90 mcg/actuation HFA aerosol inhaler 2 puff inhalation Q6H PRN (Reason: shortness of breath or wheezing) Qty: 6.7 0RF No Action ibuprofen 600 mg tablet 600 mg PO Q6H Qty: 30 0RF baclofen 20 mg tablet 20 mg PO TID Qty: 14 0RF gabapentin 300 mg capsule 300 mg PO BID Qty: 20 0RF cefuroxime axetil 500 mg tablet 500 mg PO BID Qty: 14 0RF pantoprazole [Protonix] 40 mg tablet,delayed release (DR/EC) 40 mg PO QDAY Qty: 14 0RF lidocaine [Lidoderm] 5 % adhesive patch,medicated 2 patch topical QDAY PRN (Reason: pain) Qty: 30 0RF Rx Instructions: leave on most painful area for up to 12 hrs cyclobenzaprine 10 mg tablet 10 mg PO Q8H PRN (Reason: muscle spasm) Qty: 15 0RF albuterol sulfate 90 mcg/actuation HFA aerosol inhaler 2 puff inhalation Q6H PRN (Reason: shortness of breath or wheezing) Qty: 8.5 0RF cefdinir 300 mg capsule 300 mg PO BID Qty: 14 0RF Referrals: No Primary/Family,Physician [Primary Care Provider] - In 1 week Problem List Clinical Impression: Community acquired pneumonia Patient/Caregiver Discharge Instructions Education Materials: ED Pneumonia (Adult) Additional Instructions: Please follow-up with your primary care provider in the next 24 to 48 hours Antibiotics are sent to your pharmacy please pick them up and take them as indicated Your chest x-ray showed community-acquired pneumonia For any evidence of worsening signs or symptoms return to the emergency room immediately Print Language: Armenian Stand Alone Forms: [employer]mmy Award Info., Patient Portal Info Letter PA/[employer] Supervising Physician PA/[employer] Supervising Physician: Dr. CHAVEZ
== END 2024-09-28 12:40 | disposition home or self-care (01) ==
PROVIDERS: Emergency Provider Nurse Practitioner Family
DX: J18.9 Pneumonia, unspecified organism (principal)
CPT/HCPCS: 36415; 71046; 80053; 80307; 81001; 83735; 83880; 84484; 85025; 85610; 85730; 93005; 99283